=== PATIENT | female | born 1970 | race Caucasian/White ===

== ENCOUNTER 2018-09-09 20:29 | Observation (INO) ==
[2018-09-09 20:53] LABS: Microscopic, Urine URINE MICROSCOPIC (MICROSCOPIC)
[2018-09-09 21:05] LABS: Basophils # 0.1 K/mm3 (0-0.2); Basophils % 0.4 % (0.1-2.0); Eosinophils # 0.1 K/mm3 (0.0-0.4); Eosinophils % 0.5 % (0.1-12.0); Hematocrit 46.1 % (37.0-47.0); Hemoglobin 15.6 g/dL (12.2-16.2); Lymphocytes # 1.6 K/mm3 (0.7-4.5); Lymphocytes % 10.1 % (10-50); Mean Corpuscular HGB Conc 33.9 g/dL (31.8-35.4); Mean Corpuscular Hemoglobin 30.6 pg (27.0-31.2); Mean Corpuscular Volume 90.2 fl (81-99); Mean Platelet Volume 8.2 fl (7.4-10.4); Monocytes # 0.6 K/mm3 (0.1-1.0); Monocytes % 3.6 % (1.7-9.3); Neutrophils # 13.5 K/mm3 (1.8-7.8); Neutrophils % 85.5 % (37.0-80.0); Platelet Count 308 K/mm3 (142-424); Red Blood Count 5.11 M/mm3 (4.20-5.40); White Blood Count 15.7 K/mm3 (4.8-10.8)
[2018-09-09 21:10] LABS: Appearance,Urine CLEAR (Clear); Bilirubin,Urine Negative (Negative); Blood, Urine 2+ (Negative); Color,Urine YELLOW (Yellow); Glucose,Urine (UA) Negative (Negative); Ketones,Urine TRACE (Negative); Leukocyte Esterase,Urine Negative (Negative); Protein,Urine Negative (Negative); Specific Gravity, Urine 1.025 (1.005-1.030); Urobilinogen,Urine 0.2 EU/dl (0.2)
[2018-09-09 21:16] LABS: Albumin Level 4.1 gm/dL (3.4-5.0); Albumin/Globulin Ratio 1.2 (1.1-1.8); Anion Gap 16.8 mEq/L (5-15); Bilirubin,Total 0.5 mg/dL (0.2-1.0); Calcium 9.4 mg/dL (8.5-10.1); Globulin 3.3 gm/dl (1.3-3.2); Potassium 3.8 mmoL/L (3.5-5.1); Total Protein,Serum 7.4 gm/dL (6.4-8.2)
[2018-09-09 21:22] LABS: RBC,Urine Occasional #/hpf (0-3); WBC,Urine Occasional #/hpf (0-3)
[2018-09-09 21:23] LABS: Bacteria,Urine Trace /lpf
[2018-09-09 22:41] LABS: Eosinophils % 1 % (0-3); Lymphocytes % 9 % (10-50); Monocytes % 3 % (2-9); Neutrophils % 86 % (42-76); RBC Morphology Normal; Total Cells Counted 100
--- NOTE | 2018-09-09 23:27 | Emergency Department Note ---
ED Disposition Clinical Impression: Cholelithiasis, Appendicitis Disposition: Admitted as Observation Condition on Discharge: Good Referrals: Provider,Referral, [Primary Care Provider] - - Critical Care Critical Care Time: No Attestation: On 09/09/18, the high probability of a clinically significant, sudden or life threatening deterioration of the following system(s) required my full and direct attention, intervention and personal management. The time I documented below is in addition to time spent performing reported procedures but includes the following listed in this critical care notation. Medical Decision Making - Medical Records Medical records reviewed: Yes: I reviewed the patient's medical records. - Archie Inquiry Pt receiving controlled substance: No Archie was queried for this patient: No Vital Signs: 09/09/18 20:35 09/09/18 21:30 09/09/18 22:37 Temperature 98.4 F Temperature Source Oral Pulse Rate [Right Radial] 89 87 72 Respiratory Rate 16 20 18 Blood Pressure [Right Arm] 203/87 H 196/88 H 132/93 H Blood Pressure Mean [Right Arm] 125 124 106 Blood Pressure Source [Right Arm] Automatic Cuff Blood Pressure Position [Right Arm] Sitting 02 Sat by Pulse Oximetry 100 97 97 Oxygen Delivery Method Room Air Room Air Room Air - Lab Data Lab results reviewed: Yes: I reviewed the patient's lab results. Lab Results 09/09/18 20:40: WBC 15.7 H, RBC 5.11, Hgb 15.6, Hct 46.1, MCV 90.2, MCH 30.6, MCHC 33.9, RDW 13.0, Plt Count 308, MPV 8.2, Neut % (Auto) 85.5 H, Lymph % (Auto) 10.1, [place] % (Auto) 3.6, Eos % (Auto) 0.5, Baso % (Auto) 0.4, Neut # (Auto) 13.5 H, Lymph # (Auto) 1.6, [place] # (Auto) 0.6, Eos # (Auto) 0.1, Baso # (Auto) 0.1, Total Counted 100, Neutrophils % (Manual) 86 H, Band Neutrophils % 1.0, Lymphocytes % (Manual) 9 L, Monocytes % (Manual) 3, Eosinophils % (Manual) 1, Platelet Estimate Normal, RBC Morphology Normal 09/09/18 20:40: Urine HCG, Qual Negative 09/09/18 20:40: Sodium 140, Potassium 3.8, Chloride 101, Carbon Dioxide 26, Anion Gap 16.8 H, BUN 10, Creatinine 0.75, Estimated Creat Clear 125, Estimated GFR 83, Est GFR ( Amer) 100, Glucose 105, Calcium 9.4, Total Bilirubin 0.5, AST 17, ALT 16, Alkaline Phosphatase 89, Total Protein 7.4, Albumin 4.1, Globulin 3.3 H, Albumin/Globulin Ratio 1.2, Amylase 72, Lipase 126 09/09/18 20:41: Urine Color Yellow, Urine Appearance Clear, Urine pH 7.0, Ur Specific [place] 1.025, Urine Protein Negative, Urine Glucose (UA) Negative, Urine Ketones Trace, Urine Blood 2+, Urine Nitrate Negative, Urine Bilirubin Negative, Urine Urobilinogen 0.2, Ur Leukocyte Esterase Negative, Urine RBC Occasional, Urine WBC Occasional, Ur Squamous Epith Cells 3-5, Urine Bacteria Trace Result diagrams: 09/09/18 20:40 09/09/18 20:40 Orders (Tests/Meds): ED MEDICATIONS Generic Name Dose Route Start Last Admin Trade Name Kasia PRN Reason Stop Dose Admin Sodium Chloride 10 ml 09/09/18 20:41 Saline Flush 10ml Syringe IV 10/09/18 20:40 NEEDED PRN Maintain IV Site Discontinued Medications Generic Name Dose Route Start Last Admin Trade Name Frejignesh PRN Reason Stop Dose Admin Ioversol 75 ml 09/09/18 22:42 09/09/18 22:43 Rad-Optiray 350 100ml Vial IV 09/09/18 22:43 75 ml ONCE ONE Administration Protocol Ketorolac Tromethamine 30 mg 09/09/18 21:31 09/09/18 21:51 Toradol 30mg/Ml Vial IV 09/09/18 21:32 30 mg ONCE ONE Administration Ondansetron HCl 4 mg 09/09/18 21:32 09/09/18 21:51 Zofran 4mg/2ml Vial IV 09/09/18 21:33 4 mg ONCE ONE Administration Sodium Chloride 10 ml 09/09/18 22:42 09/09/18 22:43 Rad-Saline Flush 10ml Syringe IV 09/09/18 22:43 10 ml ONCE ONE Administration ORDERS Category Date Time Status CT abdomen pelvis w con Stat Cat Scan 09/09/18 21:32 Taken - CT Data CT Scan: Abdomen Time Received: 23:[address] Reviewed: Yes: I discussed the CT results w/the radiologist Preliminary Findings: Abnormal (Cholelithiasis and a appendicolith with a 15 mm appendix some free fluid) Medical Decision Narrative: Differential diagnosis acute pancreatitis, cholecystitis, perforated ulcer, appendicitis, hernia, Patient CT is consistent with cholelithiasis and possibly early appendicitis with appendicolith and a 15 mm appendix. Patient treated with Zofran and Toradol with improvement of symptoms. Discussed with Dr. Cox will admit patient for observation n.p.o. no antibiotics at this time. Admitted to Dr. Foy the doctor corrections sergeant General Adult HPI - General Chief complaint: Abdominal Pain Stated complaint: Abd pain Time Seen by Provider: 09/09/18 20:40 Mode of Arrival: Ambulatory Limitations: No Limitations Description of Symptoms (Recalled from ER Triage Doc. by RN): pt reports abdominal pain that started around 1300 after eating a hotdog, reports abdominal pain is in her upper abdomen radiating into her back, reports nausea, no vomiting - History of Present Illness HPI narrative: 48-year-old female history of gastric bypass states she ate a hot dog mid day and now has epigastric and right upper quadrant pain with nausea. No other surgery. Otherwise healthy she has lost 100 pounds since her bypass - Related Data Home Medications Medication Instructions Recorded Confirmed No Known Home Medications 09/09/18 09/09/18 Allergies Allergy/AdvReac Type Severity Reaction Status Date / Time PENICILLIN Allergy Unknown I-RASH Uncoded 09/09/18 20:42 [facility] History - Hepatitis A Screen Drug use history?: No High risk sexual behaviors?: No History of sexually transmitted infection?: No Currently employed?: No Childcare worker?: No Do you have indoor plumbing?: Yes Do you have electricity?: Yes Attestation statement:: This patient has been screened for Hepatitis A risk factors. I have reviewed the patient's past medical history: Yes Medical History: Denies:: Diabetes Mellitus Type 1, Diabetes Mellitus Type 2 Other Surgeries: Yes: Other (Gastric sleeve) - Social History Smoking Status: Current every day smoker Tobacco Type: cigarettes # Packs/Day (cigarettes): 1 Alcohol Intake: never Alcohol Intake Frequency:: a few times a week Substance Use Type: marijuana Occupational Status: employed - Psychiatric History Expresses thoughts of harming self/others: None Suicide Plan Description: No Plan ROS Obtained: Yes All systems reviewed & no additional complaints - Gastrointestinal Gastrointestingal: Reports: system reviewed and no additional complaints, except as docu, as per HPI, abdominal pain, nausea Physical Exam - General General appearance: alert, in distress (Right upper quadrant epigastric pain with nausea) - Head Head exam: atraumatic, normocephalic, normal inspection - Eye Eye exam: Present: normal appearance, PERRL, EOMI - ENT ENT exam: Present: normal exam, normal oropharynx, mucous membranes moist, TM's normal bilaterally, normal external ear exam - Neck Neck exam: Present: normal inspection, full ROM, trachea midline. Absent: meningismus, lymphadenopathy - Chest Chest inspection: Present: normal inspection, symmetric chest wall rise. Absent: tenderness - Respiratory Respiratory exam: Present: normal lung sounds bilaterally. Absent: respiratory distress - Cardiovascular Cardiovascular exam: Present: regular rate, normal rhythm. Absent: JVD - Abdominal Exam Abdominal exam: Present: soft, tenderness, normal bowel sounds. Absent: distention, guarding, rebound, rigidity Abdominal tenderness: Present: RUQ, epigastrium, mild - Extremities Exam Extremities exam: Present: normal inspection, full ROM, normal capillary refill. Absent: calf tenderness - Back Exam Back exam: Present: normal inspection. Absent: tenderness - Neurological Exam Neurological exam: Present: alert, oriented X3 - Psychiatric Psychiatric exam: Present: normal affect, normal mood - Skin Skin exam: Present: warm, dry, intact, normal color - Lymphatic Lymphatic Findings: no adenopathy
[2018-09-10 07:18] LABS: Basophils % 0.2 % (0.1-2.0); Eosinophils # 0.1 K/mm3 (0.0-0.4); Eosinophils % 0.6 % (0.1-12.0); Hematocrit 42.2 % (37.0-47.0); Hemoglobin 14.5 g/dL (12.2-16.2); Lymphocytes % 6.9 % (10-50); Mean Corpuscular HGB Conc 34.2 g/dL (31.8-35.4); Mean Corpuscular Hemoglobin 30.7 pg (27.0-31.2); Mean Corpuscular Volume 89.8 fl (81-99); Mean Platelet Volume 7.7 fl (7.4-10.4); Monocytes # 0.7 K/mm3 (0.1-1.0); Monocytes % 4.9 % (1.7-9.3); Neutrophils # 12.6 K/mm3 (1.8-7.8); Neutrophils % 87.4 % (37.0-80.0); Platelet Count 255 K/mm3 (142-424); Red Cell Distribution Width 12.9 % (11.5-17.5); White Blood Count 14.5 K/mm3 (4.8-10.8)
[2018-09-10 07:38] LABS: INR 1.03 (0.9-1.1); Prothrombin Time 10.6 seconds (9.4-11.8)
--- NOTE | 2018-09-10 08:21 | Consult Report ---
*Admission Date: 09/10/18 *Chief complaint: Abdominal pain *History of present illness: Patient is a pleasant 48-year-old white female who had undergone laparoscopic gastric sleeve 2 years ago. She had been in her normal state of health feeling well until yesterday afternoon at which time she experienced diffuse upper abdominal pain. She describes this as constant. It was from her epigastrium to her umbilical area. She presented to the emergency department in the late evening yesterday evening and workup revealed a leukocytosis. She underwent CT scan which revealed incidental gallstones with no sonographic evidence of cholecystitis. She did however have findings of thickened appendix possibly co nsistent with early appendicitis. She was admitted for inpatient management. She has had ongoing pain diffusely which is worse with lying on her side. She denies nausea or diarrhea. Review of Systems - Constitutional Reports anorexia - Eyes Denies loss of vision - ENT Denies abnormal hearing - *Cardiovascular Denies chest pain - *Respiratory Denies shortness of breath - *Gastrointestinal Reports abdominal pain - *Genitourinary Denies abnormal periods - *Neurologic Denies abnormal walking, Denies dizziness [facility] History Medical History: Denies:: Cancer, Diabetes Mellitus Type 1, Diabetes Mellitus Type 2, MRSA *Have you ever received a pneumonia vaccine?: No *Have you received a flu vaccine this season?: Yes Laterality Cases: Bilateral: Tonsillectomy Other Surgeries: Yes: Other (Gastric sleeve) Amputation: No Fractures: No - *Social History Educational Level: Completed College Smoking Status: Current every day smoker Tobacco Type: cigarettes # Packs/Day (cigarettes): 1 Alcohol Intake: current Alcohol Intake Frequency:: a few times a week Substance Use Type: marijuana *Occupational Status:: employed Housing: house *Travel in the last 8 weeks: None - Psychiatric History Expresses thoughts of harming self/others: None Suicide Plan Description: No Plan Family Hx:: Cancer, Diabetes, Heart Attack Meds Home Medications Medication Instructions Recorded Confirmed Type Calcium Carbonate [Calcium] 600 mg PO DAILY 09/10/18 09/10/18 History Simethicone 125 mg PO DAILY PRN 09/10/18 09/10/18 History Allergies Allergy/AdvReac Type Severity Reaction Status Date / Time PENICILLIN Allergy Unknown I-RASH Uncoded 09/09/18 20:42 Exam Vital signs and Labs for Last 24 Hours: Temp Pulse Resp BP Pulse Ox 99.2 F 88 16 134/79 97 09/10/18 07:59 09/10/18 07:59 09/10/18 07:59 09/10/18 07:59 09/10/18 07:59 Laboratory Results - last 24 hr 09/09/18 20:40: WBC 15.7 H, RBC 5.11, Hgb 15.6, Hct 46.1, MCV 90.2, MCH 30.6, MCHC 33.9, RDW 13.0, Plt Count 308, MPV 8.2, Neut % (Auto) 85.5 H, Lymph % (Auto) 10.1, [place] % (Auto) 3.6, Eos % (Auto) 0.5, Baso % (Auto) 0.4, Neut # (Auto) 13.5 H, Lymph # (Auto) 1.6, [place] # (Auto) 0.6, Eos # (Auto) 0.1, Baso # (Auto) 0.1, Total Counted 100, Neutrophils % (Manual) 86 H, Band Neutrophils % 1.0, Lymphocytes % (Manual) 9 L, Monocytes % (Manual) 3, Eosinophils % (Manual) 1, Platelet Estimate Normal, RBC Morphology Normal 09/09/18 20:40: Urine HCG, Qual Negative 09/09/18 20:40: Sodium 140, Potassium 3.8, Chloride 101, Carbon Dioxide 26, A nion Gap 16.8 H, BUN 10, Creatinine 0.75, Estimated Creat Clear 125, Estimated GFR 83, Est GFR ( Amer) 100, Glucose 105, Calcium 9.4, Total Bilirubin 0.5, AST 17, ALT 16, Alkaline Phosphatase 89, Total Protein 7.4, Albumin 4.1, Globulin 3.3 H, Albumin/Globulin Ratio 1.2, Amylase 72, Lipase 126 09/09/18 20:41: Urine Color Yellow, Urine Appearance Clear, Urine pH 7.0, Ur Specific [place] 1.025, Urine Protein Negative, Urine Glucose (UA) Negative, Urine Ketones Trace, Urine Blood 2+, Urine Nitrate Negative, Urine Bilirubin Negative, Urine Urobilinogen 0.2, Ur Leukocyte Esterase Negative, Urine RBC Occasional, Urine WBC Occasional, Ur Squamous Epith Cells 3-5, Urine Bacteria Trace 09/10/18 07:01: WBC 14.5 H, RBC 4.70, Hgb 14.5, Hct 42.2, MCV 89.8, MCH 30.7, MCHC 34.2, RDW 12.9, Plt Count 255, MPV 7.7, Neut % (Auto) 87.4 H, Lymph % (Auto) 6.9 L, [place] % (Auto) 4.9, Eos % (Auto) 0.6, Baso % (Auto) 0.2, Neut # (Auto) 12.6 H, Lymph # (Auto) 1.0, [place] # (Auto) 0.7, Eos # (Auto) 0.1, Baso # (Auto) 0.0 09/10/18 07:01: PT 10.6, INR 1.03 I & O for Last 24 hours: Intake & Output 09/07/18 09/08/18 09/09/18 09/10/18 11:59 11:59 11:59 11:59 Intake Total 0 / 0 Balance 0 / 0 Weight 190 lb 2 oz - *Routine HEENT Exam Head: Present: normocephalic Eye: Present: EOMI, PERRL ENT: Present: mucous membranes moist - *Routine Neck Exam Present: supple. Absent: lymphadenopathy - *Routine Respiratory Exam Present: CTA bilaterally - *Routine Cardiovascular Exam Present: RRR - *Routine Abdominal Exam Present: soft, tenderness Comments: She has multiple laparoscopy scars. Her abdomen is soft. She has diffuse tenderness across the epigastrium and in the right lower quadrant. - *Routine Extremities Exam Absent: cyanosis, clubbing, edema - *Routine Skin Exam Present: warm. Absent: rash - *Routine Neurological Exam Present: alert, oriented X3 - Detailed Eye Exam Eyelids: Left normal inspection Results - Labs 09/10/18 07:01 09/09/18 20:40 Laboratory Results - last 24 hr 09/09/18 20:40: WBC 15.7 H, RBC 5.11, Hgb 15.6, Hct 46.1, MCV 90.2, MCH 30.6, MCHC 33.9, RDW 13.0, Plt Count 308, MPV 8.2, Neut % (Auto) 85.5 H, Lymph % (Auto) 10.1, [place] % (Auto) 3.6, Eos % (Auto) 0.5, Baso % (Auto) 0.4, Neut # (Auto) 13.5 H, Lymph # (Auto) 1.6, [place] # (Auto) 0.6, Eos # (Auto) 0.1, Baso # (Auto) 0.1, Total Counted 100, Neutrophils % (Manual) 86 H, Band Neutrophils % 1 .0, Lymphocytes % (Manual) 9 L, Monocytes % (Manual) 3, Eosinophils % (Manual) 1, Platelet Estimate Normal, RBC Morphology Normal 09/09/18 20:40: Urine HCG, Qual Negative 09/09/18 20:40: Sodium 140, Potassium 3.8, Chloride 101, Carbon Dioxide 26, Anion Gap 16.8 H, BUN 10, Creatinine 0.75, Estimated Creat Clear 125, Estimated GFR 83, Est GFR ( Amer) 100, Glucose 105, Calcium 9.4, Total Bilirubin 0.5, AST 17, ALT 16, Alkaline Phosphatase 89, Total Protein 7.4, Albumin 4.1, Globulin 3.3 H, Albumin/Globulin Ratio 1.2, Amylase 72, Lipase 126 09/09/18 20:41: Urine Color Yellow, Urine Appearance Clear, Urine pH 7.0, Ur Specific [place] 1.025, Urine Protein Negative, Urine Glucose (UA) Negative, Urine Ketones Trace, Urine Blood 2+, Urine Nitrate Negative, Urine Bilirubin Negative, Urine Urobilinogen 0.2, Ur Leukocyte Esterase Negative, Urine RBC Occasional, Urine WBC Occasional, Ur Squamous Epith Cells 3-5, Urine Bacteria Trace 09/10/18 07:01: WBC 14.5 H, RBC 4.70, Hgb 14.5, Hct 42.2, MCV 89.8, MCH 30.7, MCHC 34.2, RDW 12.9, Plt Count 255, MPV 7.7, Neut % (Auto) 87.4 H, Lymph % (Auto) 6.9 L, [place] % (Auto) 4.9, Eos % (Auto) 0.6, Baso % (Auto) 0.2, Neut # (Auto) 12.6 H, Lymph # (Auto) 1.0, [place] # (Auto) 0.7, Eos # (Auto) 0.1, Baso # (Auto) 0.0 09/10/18 07:01: PT 10.6, INR 1.03 Assessment and Plan - Assessment and plan all Dx Assessment and Plan for all problems:: Patient's final reading on the CT scan is consistent with acute appendicitis with multiple appendicoliths and inflamed distended appendix. I discussed this with her. At this time plan will be for laparoscopic with possibly open appendectomy. I did explain to her that the finding of gallstones CT scan is likely an incidental finding. However, attempt will be made to laparoscopically evaluate the gallbladder as well. Patient understands and agrees to proceed.
[2018-09-10 08:23] LABS: Lymphocytes % 3 % (10-50); Monocytes % 3 % (2-9); Neutrophils % 92 % (42-76); RBC Morphology Normal; Total Cells Counted 100
--- NOTE | 2018-09-10 08:51 | Progress Note ---
[facility] Anesthesia Checklist - Patient Identification Patient Identification: Arm Band, Verbal (Name & ) - Structural Data Admitted From: Inpatient Planned Operative Procedure/s: lap appy Consent for Planned Operative Procedure(s) Verified: Yes Verified Documents: History and Physical - NPO Status Verified Time NPO: 00:00 - Additional verifications Patient : No Anesthesia Reactions: No Hx Blood Transfusions: No Blood Transfusion Reaction: No Cephalosporin Allergy: No Previous Colonoscopy: No - Cardiovascular Assessment Heart Sounds: S1 & S2 Pulse Strength: Baseline Pulse Rhythm: Regular Peripheral Edema: No - Airway Assessment C-Spine Mobility Assessed: Yes TMJ Mobility Assessed: Yes Dentition: Good Dentition - Neurological Assessment Level of Consciousness: Awake, Alert, Appropriate Hx Seizures: No Numbness or tingling in extremities: No - Anesthesia Plan Anesthesia Risk discussed: Yes Anesthesia Plan: Verified ASA Class: II Anesthesia Type: General [facility] History I have reviewed the patient's past medical history: Yes Medical History: Denies:: Cancer, Diabetes Mellitus Type 1, Diabetes Mellitus Type 2, MRSA *Have you ever received a pneumonia vaccine?: No *Have you received a flu vaccine this season?: Yes Laterality Cases: Bilateral: Tonsillectomy Other Surgeries: Yes: Other (Gastric sleeve) Amputation: No Fractures: No - *Social History Educational Level: Completed College Smoking Status: Current every day smoker Tobacco Type: cigarettes # Packs/Day (cigarettes): 1 Alcohol Intake: current Alcohol Intake Frequency:: a few times a week Substance Use Type: marijuana *Occupational Status:: employed Housing: house *Travel in the last 8 weeks: None - Psychiatric History Expresses thoughts of harming self/others: None Suicide Plan Description: No Plan Family Hx:: Cancer, Diabetes, Heart Attack
--- NOTE | 2018-09-10 10:41 | Operative Note ---
Date of procedure: 09/10/18 Pre-op Diagnosis:: Acute appendicitis Post-op Diagnosis:: Same Procedure performed:: Laparoscopic appendectomy Surgeon:: George Cox MD [employer] SPECIALIST:: Shamar Carbajal Anesthesia: CHRIS Estimated blood loss (mL): 25 Clinical Note:: Patient is a 48-year-old white female who had previously undergone laparoscopic sleeve gastrectomy 2 years ago in [place]. She was in her usual state of health until yesterday afternoon at which time she had developed onset of upper abdominal pain. This persisted throughout the day and she presented to the emergency department in the evening of 09/09/18. Mild leukocytosis. She underwent CT scan which revealed gallstone and thickened appendix with appendicolith. It was felt that she may have early appendicitis. She was admitted for inpatient management. Final reading on her CT scan revealed multiple appendicoliths and 17 mm appendix consistent with acute appendicitis with some fluid in the pelvis. Arrangements were made for appendectomy. Operative findings:: Patient had a significantly inflamed thickened tense somewhat suppurative appendicitis with nontransmural necrosis. She also had some loculated fluid in the right pelvis with thin-walled "capsule". Gallbladder appeared relatively unremarkable. She did have an appreciably enlarged uterus and note CT scan revealed probable fibroid. Operative note:: Consent was obtained and patient was taken to the operating room. She was given preoperative intravenous antibiotics. In the operating room she was placed in a supine position. General anesthesia was induced via endotracheal tube. Nolen catheter was placed for bladder decompression. Abdomen was prepped and draped in the standard surgical fashion. Subumbilical skin incision was made and while performing abdominal wall lift Veress needle was inserted. CO2 pneumoperitoneum was achieved to 15 mmHg. A 12 mm optical trocar was inserted at the umbilicus. Intraperitoneal contents were visualized. She had a 5 mm trocar inserted in the suprapubic location and a 5 mm trocar inserted in the right upper abdominal location. There was loculated fluid with thin walled sac which was rather mucousy appearing in the right pelvic area distal to the cecum. This was grasped with a grasper and was able to be easily extracted via the umbilical trocar site. The reactive appearing fluid was suctioned free. Appendix was easily identified and found to be significantly acutely inflamed and somewhat suppurative. It was grasped with an endoscopic [place]. There was a micro- pinhole perforation which was apparent at the time of grasping the appendix which exuded some thin fluid which was suctioned free. The appendix was mobilized. Mesoappendix was divided with JAGUAR ultrasonic harmonic unruly with care taken to coagulate the appendiceal artery. Dissection was carried down to the appendiceal base. The appendix was divided at its base with an endoscopic MOISÉS linear cutting stapling device. The appendix was placed within an Endo Catch retrieval device and removed from the peritoneal cavity via the umbilical trocar site which required some extension of the fascial incision for delivery of the appendix. Pneumoperitoneum was reestablished. Pelvis and pericecal location were irrigated and aspirated until clear. She was noted to have rather enlarged uterus and CT scan was suggestive of large fibroid. Inspection was carried out of the right upper quadrant. She had normal appearance of the body of the gallbladder. There was good hemostasis. Trochars were removed and CO2 pneumoperitoneum was evacuated. Fascia at the umbilicus was closed with several interrupted 0 Vicryl sutures. Local anesthetic was infiltrated. Skin incisions were closed with 4-0 Monocryl in subcuticular fashion. Steri-Strips and dressings were applied. Condition: stable Disposition: PACU Specimens:: Appendix Complications:: None immediately apparent
--- NOTE | 2018-09-10 10:46 | Progress Note ---
[facility] Anesthesia Record Part II Discharge Time: 11:10 Destination: Medical Surgical Department PACU nurse assessment reviewed?: Yes Patient Condition:: Good Anesthesia Complications:: None Swallowing reflex intact?: Yes Cyanosis?: No
--- NOTE | 2018-09-10 10:46 | Progress Note ---
[facility] Anesthesia Record Part I Intake, IV Amount: 1,000 Estimated blood loss (mL): 10 Urine output (mL): 50 Blood Products used (#): none Blood Pressure: 136/76 SaO2: 99 Pulse Rate: 68 Respiratory Rate: 20 Temperature: 97.6 F Patient is:: Awake, Stable Stable to PACU at:: 10:40
[2018-09-11 06:58] LABS: Basophils % 0.2 % (0.1-2.0); Eosinophils % 0.3 % (0.1-12.0); Hematocrit 36.9 % (37.0-47.0); Lymphocytes # 1.7 K/mm3 (0.7-4.5); Lymphocytes % 15.6 % (10-50); Mean Corpuscular HGB Conc 33.2 g/dL (31.8-35.4); Mean Corpuscular Hemoglobin 30.5 pg (27.0-31.2); Mean Corpuscular Volume 91.8 fl (81-99); Monocytes # 0.6 K/mm3 (0.1-1.0); Neutrophils # 8.8 K/mm3 (1.8-7.8); Neutrophils % 78.9 % (37.0-80.0); Platelet Count 197 K/mm3 (142-424); Red Blood Count 4.02 M/mm3 (4.20-5.40); Red Cell Distribution Width 12.9 % (11.5-17.5); White Blood Count 11.1 K/mm3 (4.8-10.8)
--- NOTE | 2018-09-11 07:26 | Progress Note ---
Subjective Patient reports: feels better Exam Vital signs and Labs for Last 24 Hours: Temp Pulse Resp BP Pulse Ox 98.3 F 72 16 99/59 L 98 09/11/18 04:00 09/11/18 04:00 09/11/18 04:00 09/11/18 04:00 09/11/18 04:00 Laboratory Results - last 24 hr 09/10/18 07:01: Total Counted 100, Neutrophils % (Manual) 92 H, Lymphocytes % (Manual) 3 L, Atypical Lymphs % 2.0, Monocytes % (Manual) 3, Platelet Estimate Normal, RBC Morphology Normal 09/10/18 07:01: PT 10.6, INR 1.03 09/10/18 09:20: Urine Color Yellow, Urine Appearance Sl cloudy, Urine pH 8.0, Ur Specific [place] 1.010, Urine Protein Trace, Urine Glucose (UA) Negative, Urine Ketones Negative, Urine Blood Negative, Urine Nitrate Negative, Urine Bilirubin Negative, Urine Urobilinogen 0.2, Ur Leukocyte Esterase Negative, Urine WBC 5- 10, Ur Squamous Epith Cells 3-5 09/11/18 05:32: WBC 11.1 H, RBC 4.02 L, Hct 36.9 L, MCV 91.8, MCH 30.5, MCHC 33.2, RDW 12.9, Plt Count 197, MPV 8.0, Neut % (Auto) 78.9, Lymph % (Auto) 15.6, [place] % (Auto) 5.0, Eos % (Auto) 0.3, Baso % (Auto) 0.2, Neut # (Auto) 8.8 H, [place] mph # (Auto) 1.7, [place] # (Auto) 0.6, Eos # (Auto) 0.0, Baso # (Auto) 0.0 I & O for Last 24 hours: Intake & Output 09/08/18 09/09/18 09/10/18 09/11/18 11:59 11:59 11:59 11:59 Intake Total 999 / 999 2129 / 2129 Balance 999 / 999 2129 / 2129 Weight 190 lb 2 oz 190 lb 1 oz - *Routine Abdominal Exam Present: soft Progress Note: A&P Assessment and Plan for All Diagnoses:: DC Home
--- NOTE | 2018-09-11 07:30 | Discharge Summary ---
General - General Admission date:: 09/10/18 Discharge date: 09/11/18 HPI HPI: Patient is a 48-year-old healthy white female who had presented to the emergency department in the evening of 09/09/18 after she had developed onset of upper abdominal pain earlier that day. Pain remained in the upper abdomen. She was evaluated in the emergency department and had a CT scan performed which revealed gallstone but findings of distended appendix. Due to the equivocal presentation she was admitted overnight. Hospital Course Hospital Course: She was admitted to the medical surgical floor in the measurement specialist hours of 09/10/18. In the morning she continued to have diffuse upper abdominal pain with minor tenderness in the right lower quadrant. However, final CT scan reading was more consistent with acute appendicitis with 17 mm appendix with multiple appendicoliths and some enhancement. She was taken to the operating room at which time she underwent laparoscopic appendectomy in the morning of 09/11/18. She was found to have a significantly acutely inflamed somewhat suppurative appendicitis with some nontransmural necrosis without clear free perforation. There was a significant amount of fluid in the right pelvis as well which was somewhat loculated. Please see operative dictation for complete details. Postoperatively she was admitted to the medical surgical floor. She was continued on perioperative levofloxacin and metronidazole. Several hours of surgery the patient felt much better. Her diet was advanced from full liquid to bland diet which she tolerated without difficulty. She did develop some abdominal soreness but overall felt better. Following morning her white blood cell count has shown improvement to 11,000. She felt much better. Plan was made for discharge home at this time on several additional days of oral antibiotics of levofloxacin and metronidazole. Objective Vital signs: Temp Pulse Resp BP Pulse Ox 98.3 F 72 16 99/59 L 98 09/11/18 04:00 09/11/18 04:00 09/11/18 04:00 09/11/18 04:00 09/11/18 04:00 Results Labs on day of discharge: Labs from last 24 hours 09/11/18 09/10/18 09/10/18 05:32 09:20 07:01 WBC 11.1 H RBC 4.02 L Hct 36.9 L MCV 91.8 MCH 30.5 MCHC 33.2 RDW 12.9 Plt Count 197 MPV 8.0 Neut % (Auto) 78.9 Lymph % (Auto) 15.6 [place] % (Auto) 5.0 Eos % (Auto) 0.3 Baso % (Auto) 0.2 Neut # (Auto) 8.8 H Lymph # (Auto) 1.7 [place] # (Auto) 0.6 Eos # (Auto) 0.0 Baso # (Auto) 0.0 Total Counted Neutrophils % (Manual) Lymphocytes % (Manual) Atypical Lymphs % Monocytes % (Manual) Platelet Estimate RBC Morphology PT 10.6 INR 1.03 Urine Color Yellow Urine Appearance Sl cloudy Urine pH 8.0 Ur Specific [place] 1.010 Urine Protein Trace Urine Glucose (UA) Negative Urine Ketones Negative Urine Blood Negative Urine Nitrate Negative Urine Bilirubin Negative Urine Urobilinogen 0.2 Ur Leukocyte Esterase Negative Urine WBC 5-10 Ur Squamous Epith Cells 3-5 09/10/18 07:01 WBC RBC Hct MCV MCH MCHC RDW Plt Count MPV Neut % (Auto) Lymph % (Auto) [place] % (Auto) Eos % (Auto) Baso % (Auto) Neut # (Auto) Lymph # (Auto) [place] # (Auto) Eos # (Auto) Baso # (Auto) Total Counted 100 Neutrophils % (Manual) 92 H Lymphocytes % (Manual) 3 L Atypical Lymphs % 2.0 Monocytes % (Manual) 3 Platelet Estimate Normal RBC Morphology Normal PT INR Urine Color Urine Appearance Urine pH Ur Specific [place] Urine Protein Urine Glucose (UA) Urine Ketones Urine Blood Urine Nitrate Urine Bilirubin Urine Urobilinogen Ur Leukocyte Esterase Urine WBC Ur Squamous Epith Cells Discharge Plan - Patient Discharge Instructions ACTIVITY: No heavy lifting DIET: advance to your usual diet Patient Instructions: DI for Appendicitis -- Adult, Gallstones, Appendicitis, DI for Gallstones, Surgical Site Infection, Appendectomy -- Laparoscopic Surgery, DI for Cholecystitis - Follow up Plan Follow up with: George Cox MD [Staff Physician] - 2 weeks Disposition: Home, Self-Custodial Medications: Home Medications Medication Instructions Recorded Confirmed Type Calcium Carbonate [Calcium] 600 mg PO DAILY 09/10/18 09/10/18 History Simethicone 125 mg PO DAILY PRN 09/10/18 09/10/18 History Hydrocod/Acet 5/325 mg [[place] 1 - 2 tab PO Q6HP PRN #21 tab 09/11/18 Rx 5/325mg tablet] levoFLOXacin [Levaquin 500mg 500 mg PO DAILY #5 tab 09/11/18 Rx tab] metroNIDAZOLE [Flagyl 500mg 500 mg PO TID #15 tab 09/11/18 Rx Tablet] Prescriptions/Medication Reconciliation: New Hydrocod/Acet 5/325 mg [[place] 5/325mg tablet] 1 - 2 tab PO Q6HP PRN #21 tab PRN Reason: Moderate Pain levoFLOXacin [Levaquin 500mg tab] 500 mg PO DAILY #5 tab metroNIDAZOLE [Flagyl 500mg Tablet] 500 mg PO TID #15 tab Continue Calcium Carbonate [Calcium] 600 mg PO DAILY Simethicone 125 mg PO DAILY PRN PRN Reason: Gas Pain And Discomfort
[2018-09-11 07:41] LABS: Hemoglobin 12.4 g/dL (12.2-16.2)
[2018-09-11 08:00] LABS: Calcium 8.3 mg/dL (8.5-10.1)
--- NOTE | 2018-09-11 08:12 | Pharmacy Consult Notes ---
[facility] Pharmacy VTE Monitoring - Patient Demographics Admission date: 09/10/18 Report Date: 09/10/18 Time: 11:30 Allergies/Adverse Reactions: Patient Allergies Penicillins Allergy (Unknown, Verified 09/10/18 11:22) Unknown allergy reaction Height: 1.6 m Weight: 86.211 kg Patient Problems: Current Active Problems Cholelithiasis (Acute) Appendicitis (Acute) - VTE Risk Labs: VTE Related Lab Results Hgb 12.4 g/dL (12.2-16.2) D 09/11/18 05:32 Hct 36.9 % (37.0-47.0) L 09/11/18 05:32 Plt Count 197 K/mm3 (142-424) 09/11/18 05:32 PT 10.6 seconds (9.4-11.8) 09/10/18 07:01 INR 1.03 (0.9-1.1) 09/10/18 07:01 BUN 12 mg/dL (7-18) 09/11/18 05:32 Creatinine 0.80 mg/dL (0.55-1.02) 09/11/18 05:32 Estimated Creat Clear 118 mL/min (50-200) 09/11/18 05:32 VTE Score: 3 VTE Risk Level: Low Risk - Prophylaxis Types of VTE Prophylaxis: TEDS Knee High (CHRIS HOSE ORDER PLACED)
== END 2018-09-11 08:49 | disposition home or self-care (01) ==
LOC: 2ND 20:29 → ER 20:29 → 2ND 09-10 00:10
PROVIDERS: ADMIT Surgery; ATTEND Surgery
DX: K35.890 Other acute appendicitis without perforation or gangrene
CPT/HCPCS: 36415; 74177; 80048; 80053; 81001; 81025; 82150; 83690; 85007; 85025; 85610; 96374; 96375; 99284; G0378; J1956; J2405; J2710; Q9967

== ENCOUNTER → 2020-06-06 07:06 | Outpatient (CLI) | payer OTHER, SELFPAY ==
[2020-06-06 07:47] LABS: Basophils # 0.1 K/mm3 (0-0.2); Basophils % 0.8 % (0.1-2.0); Eosinophils # 0.1 K/mm3 (0.0-0.4); Eosinophils % 1.4 % (0.1-12.0); Hematocrit 42.9 % (37.0-47.0); Hemoglobin 13.6 g/dL (12.2-16.2); Lymphocytes # 2.9 K/mm3 (0.7-4.5); Lymphocytes % 44.8 % (10-50); Mean Corpuscular HGB Conc 31.7 g/dL (31.8-35.4); Mean Corpuscular Hemoglobin 27.8 pg (27.0-31.2); Mean Corpuscular Volume 87.6 fl (81-99); Mean Platelet Volume 7.8 fl (7.4-10.4); Monocytes # 0.5 K/mm3 (0.1-1.0); Monocytes % 7.5 % (1.7-9.3); Neutrophils # 2.9 K/mm3 (1.8-7.8); Neutrophils % 45.5 % (37.0-80.0); Platelet Count 267 K/mm3 (142-424); Red Blood Count 4.89 M/mm3 (4.20-5.40); Red Cell Distribution Width 13.9 % (11.5-17.5); White Blood Count 6.4 K/mm3 (4.8-10.8)
[2020-06-06 08:52] LABS: Alanine Aminotransferase 12 U/L (12-78); Albumin Level 4.2 g/dl (3.5-5.0); Albumin/Globulin Ratio 1.6 (1.1-1.8); Alkaline Phosphatase 76 U/L (38-126); Anion Gap 9.6 mEq/L (5-15); Aspartate Amino Transferase 24 U/L (14-36); Bilirubin,Total 0.5 mg/dl (0.2-1.3); Blood Urea Nitrogen 12 mg/dl (7-17); Calcium 9.5 mg/dl (8.4-10.2); Carbon Dioxide 32 mmol/L (22.0-30.0); Chloride 103 mmol/L (98-107); Chol/HDL Ratio 4.7 (1-3.5); Cholesterol 202 mg/dl (140-200); Estimated Glomerular Filt Rate 77 ml/min (>60); GFR (African American) 93 ML/MIN (>60); Globulin 2.7 g/dL (1.3-3.2); Glucose 85 mg/dl (74-100); HDL Cholesterol 43 mg/dl (40-60); Potassium 4.6 mmoL/L (3.5-5.1); Sodium 140 mmol/L (136-145); Total Protein,Serum 6.9 g/dl (6.3-8.2); Triglycerides 108 mg/dl (30-150); VLDL Cholesterol 22 mg/dL (0-40)
[2020-06-06 09:03] LABS: Direct LDL Cholesterol 135.85 mg/dL (100-129)
[2020-06-06 09:23] LABS: Thyroid Stimulating Hormone 1.36 uIU/mL (0.465-4.68)
[2020-06-06 09:41] LABS: Vitamin B12 660 pg/mL (239-931)
[2020-06-15 08:11] LABS: 1,25 Dihydroxy Vitamin D 19 pg/mL (.); 1,25-Dihydroxy, Vitamin D-2 <10 pg/mL (.); 1,25-Dihydroxy, Vitamin D-3 19 pg/mL (.)
== END ==
PROVIDERS: Visit Provider Nurse Practitioner Psychiatric/Mental Health
DX: Z00.00 Encounter for general adult medical examination without abnormal findings (principal); F98.8 Other specified behavioral and emotional disorders with onset usually occurring in childhood and adolescence; F41.1 Generalized anxiety disorder; E55.9 Vitamin D deficiency, unspecified
CPT/HCPCS: 36415; 80053; 80061; 82607; 82652; 84443; 85025

== ENCOUNTER → 2022-06-09 06:11 | Outpatient (CLI) | payer OTHER, SELFPAY ==
--- NOTE | 2022-06-09 06:12 | CA_ITS ---
APPROVED REPORT EXAM: Comprehensive 2D, Doppler, and color-flow Echocardiogram Back Padder: Carol Wen RVT Ht: 5 ft 3 in Wt: 208lbs BSA: 1.97 BP: 158/83 mmHg Indications: SOA,HTN,CP,PALPS 2D Dimensions LVOT 1.98 cm (M/F) 1.5-2.5 LA Volume 17.50 mL LA Volume Index 8.88 mL/m2 (M/F) 16-34 M-Mode Dimensions RVDd 2.36 cm (0.9-2.6) LA Diam 3.80 cm (1.9-4.0) LVDd 4.75 cm (3.5-5.7) Ao Diam 3.05 cm (2.0-3.7) LVDs 3.10 cm (3.5-5.7) IVSd 0.70 cm (0.6-1.1) PWd 1.34 cm (0.6-1.1) EF (Teich) 63.90% FS 34.70% EDV (Teich) 104.90 mL TAPSE 2.66 (<1.7) ESV (Teich) 37.90 mL LV Diastology E Decel Time 237.00 (160-240 msec) E/A Ratio 1.1 MED E' 7.10 (< 7 cm/sec) E'/MED E' Ratio 10.94 (>14) LAT E' 10.00 (<10 cm/sec) E/LAT E' Ratio 7.77 (>14) Aortic Valve AO Peak GR. 8.20 mmHg Mitral Valve MV E Max Edenilson. 78.00 (40-130 cm/s) MV A Velocity 70.00 (40-130 cm/s) E/A Ratio 1.11 MV Decel. Time 237.00 (160-240 ms) MV PHT 69.00 ms Pulmonary Valve PV Peak Velocity 90.00 (50-150 cm/s) Tricuspid Valve TR P. Velocity 137.00 cm/s RAP Estimate 10.00 mmHg RVSP 17.50 mmHg Left Ventricle Left atrium is mildly enlarged, left ventricle normal size, estimated ejection fraction 55% with no regional wall motion abnormality, there is no concentric left ventricular hypertrophy, diastolic parameters are inconclusive. Right Ventricle Right atrium and right ventricle are normal size and contractility. Aortic Valve Aortic valve is grossly normal there is no aortic stenosis or aortic insufficiency. Mitral Valve Mitral valve grossly normal, there is trace mitral regurgitation. Tricuspid Valve Tricuspid valve grossly normal, there is trace tricuspid regurgitation. Pulmonic Valve Pulmonic valve is poorly visualized. Great Vessels Aortic root is normal size. Inferior vena cava is normal size with normal inspiratory collapse. Pericardium No significant pericardial effusion. Conclusion 1. Normal left ventricular size preserved left ventricular systolic function, estimated ejection fraction 55% with no regional wall motion abnormality, diastolic parameters are inconclusive. 2. Trace mitral and tricuspid regurgitation. 3. No significant pericardial effusion. 4. Inferior vena cava normal size with normal inspiratory collapse. Electronically signed by : James Roldan MD 06/10/2022 06:37:53
--- NOTE | 2022-06-09 06:12 | CA_ITS ---
APPROVED REPORT Exam: Pharmacologic Technologist: Jennifer Fischer, Ht: 5 ft 3 in Wt: 208 lbs BSA: 1.97 m2 HR: 70 bpm BP: 156/86 mmHg Medical History Medications: Buspirone,,,,, Trazodone,,,,, ADderALL,,,,, Vraylar,,,,, Propranolol ER,,,,, Effexor XR,,,,, Stress Test Details Test: LEXISCAN Reason for pharmacologic stress test: changed from exercise stress test due to inability to reach target heart rate. HR Resting HR: 70 bpm Max Heart Rate (APMHR): 170.956864 bpm Max HR Achieved: 91 bpm Target HR (85% APMHR): 144.819530 bpm % of APMHR: 53.53 Recovery HR: 79 bpm BP Resting BP: 156/86 mmHg Max BP: 156/86 mmHg Recovery BP: 125.0/74.0 mmHg ECG Resting ECG: NSR, interpolated premature junctional complexes Clinical Exercise duration: 04:00 min Highest Stage Achieved: Exercise capacity: 1.0 METs Stress ECG Conclusion Switched from exercise due to limited exercise tolerance (went <1 minute into stage II Phani Protocol. Symptoms: Brief SOA, head discomfort. No CP. Arrhythmias/Ectopy: None ST-T Changes: No significant changes compared to baseline EKG. Conclusion: Unremarkable Lexiscan stress. Myoview images reported separately. Test Summary REST . . . . . . . Resting REST 02:04 . . 70 . 156/ 86 . . Stage 1 01:00 . . 88 . . . . Stage 2 01:00 . . 89 . . . . Stage 3 01:00 . . 85 . 108/ 58 . . Stage 4 01:00 . . 83 . 113/ 68 . Stop exercise at 04:00 RECOVERY 01:00 . . 80 . 133/ 76 . . RECOVERY 02:00 . . 81 . 133/ 76 . . RECOVERY 03:00 . . 77 . 126/ 75 . . RECOVERY 04:00 . . 76 . 125/ 74 . . RECOVERY 04:19 . . 77 . 125/ 74 . . Electronically signed by : James Roldan MD 06/10/2022 05:55:56
--- NOTE | 2022-06-09 06:12 | NM_ITS ---
APPROVED REPORT Exam: Nuclear Stress Test Indication: Chest pain, SOB, Palpitations, HTN, Tobacco use, Family history Patient Location: Outpatient Stress Tech: Jennifer Shane IN Tech:Trista Trevino, ARRT, RT (R)(N) Ht: 5 ft 3 in Wt: 208 lbs Bra Size: 36DD HR: 70 bpm BP: 156/86 mmHg BSA: 1.97 m2 TID: 1.00 BMI: 36.8 History: Chest pain, SOB, Palpitations, HTN, Tobacco use, Family history Procedure: Patient received a 0.4 mg of intravenous Lexiscan, resting heart rate 70 bpm, resting blood pressure 156/86 mmHg, with Lexiscan maximum heart rate achived was 91 bpm which is Less than 85 % of the maximum predicted heart rate and blood pressure was 156/86 mmHg. With Lexiscan, patient denied any complaint of chest pain. Electrocardiogram Resting electrocardiogram shows sinus rhythm, with Lexiscan there is less than 1.[address] segment depression noted from the baseline EKG. The EKG portion of the Lexiscan is nondiagnostic. Cardiac Stress and Resting SPECT Images: Cardiac Stress and Resting SPECT images were obtained using technetium 99m Myoview 31.6 mCi stress and 10.49 mCi at rest. Gated SPECT for analysis of segmental wall motion and calculation of the ejection fraction also done. Prone images were also obtained. Cardiac stress and muscle SPECT images show uniform myocardial activity without segmental perfusion abnormality, computer derived ejection fraction is over 65% with no regional wall motion abnormality, right ventricle is normal size and contractility. Conclusion: 1. The EKG portion of the Lexiscan is nondiagnostic. 2. No scintigraphic evidence of reversible ischemia seen, computer derived ejection fraction is over 65% with no regional wall motion abnormality, right ventricle is normal size and contractility. 3. Normal Lexiscan Myoview study. Electronically signed by : James Roldan MD 06/10/2022 05:58:40
--- NOTE | 2022-06-09 08:19 | HMH.ITSHM ---
Current Home Medications as stated by this patient Irina Blanchard or field representative/health education. []VENLAFAXINE TRAZODONE PROPRANOLOL LOSARTAN CARIPRAZINE BUSPIRONE
== END ==
PROVIDERS: PCP Nurse Practitioner Family; Visit Provider Physician Assistant
DX: R06.09 Other forms of dyspnea (principal); R07.89 Other chest pain; R00.2 Palpitations; I10 Essential (primary) hypertension; F41.1 Generalized anxiety disorder
CPT/HCPCS: 78452; 93017; 93306; A9502; J2785

== ENCOUNTER → 2022-06-15 14:11 | Outpatient (CLI) | payer OTHER, SELFPAY ==
[2022-06-15 14:52] LABS: Basophils # 0.1 K/mm3 (0-0.2); Basophils % 1.1 % (0.1-2.0); Eosinophils # 0.1 K/mm3 (0.0-0.4); Eosinophils % 1.6 % (0.1-12.0); Hematocrit 36.3 % (37.0-47.0); Lymphocytes # 1.5 K/mm3 (0.7-4.5); Lymphocytes % 23.8 % (10-50); Mean Corpuscular HGB Conc 33.1 g/dL (31.8-35.4); Mean Corpuscular Hemoglobin 25.8 pg (27.0-31.2); Mean Corpuscular Volume 77.9 fl (81-99); Mean Platelet Volume 8.4 fl (7.4-10.4); Monocytes # 0.4 K/mm3 (0.1-1.0); Monocytes % 6.8 % (1.7-9.3); Neutrophils # 4.2 K/mm3 (1.8-7.8); Neutrophils % 66.8 % (37.0-80.0); Platelet Count 355 K/mm3 (142-424); Red Blood Count 4.66 M/mm3 (4.20-5.40); Red Cell Distribution Width 15.1 % (11.5-17.5); White Blood Count 6.3 K/mm3 (4.8-10.8)
[2022-06-15 15:42] LABS: Alanine Aminotransferase 14 U/L (12-78); Alkaline Phosphatase 82 U/L (38-126); Anion Gap 8.9 mEq/L (5-15); Aspartate Amino Transferase 23 U/L (14-36); Bilirubin,Direct 0.1 mg/dl (0.0-0.4); Bilirubin,Indirect 0.3 mg/dL (0.0-0.9); Bilirubin,Total 0.4 mg/dl (0.2-1.3); Bilirubin,Unconjugated 0.2 mg/dL (0.0-1.1); Blood Urea Nitrogen 10 mg/dl (7-17); Calcium 9.2 mg/dl (8.4-10.2); Carbon Dioxide 32 mmol/L (22.0-30.0); Chloride 101 mmol/L (98-107); Chol/HDL Ratio 4.3 (1-3.5); Cholesterol 199 mg/dl (140-200); Estimated Glomerular Filt Rate 66 ml/min (>60); GFR (African American) 80 ML/MIN (>60); Glucose 110 mg/dl (74-100); HDL Cholesterol 46 mg/dl (40-60); Magnesium 2.1 mg/dl (1.6-2.3); Potassium 3.9 mmoL/L (3.5-5.1); Sodium 138 mmol/L (136-145); Total Protein,Serum 6.6 g/dl (6.3-8.2); Triglycerides 139 mg/dl (30-150); VLDL Cholesterol 28 mg/dL (0-40)
[2022-06-15 15:53] LABS: Direct LDL Cholesterol 125.75 mg/dL (100-129)
[2022-06-15 15:58] LABS: Free T4 (Free Thyroxine) 0.88 ng/dl (0.78-2.19)
[2022-06-15 16:12] LABS: Thyroid Stimulating Hormone 3.09 uIU/mL (0.465-4.68)
== END ==
PROVIDERS: PCP Nurse Practitioner Family; Visit Provider Nurse Practitioner
DX: R00.2 Palpitations (principal); I10 Essential (primary) hypertension
CPT/HCPCS: 36415; 80048; 80061; 80076; 83735; 84439; 84443; 85025

== ENCOUNTER 2023-04-20 11:05 | Emergency (ER) | payer OTHER, SELFPAY ==
[2023-04-20 11:20] VITALS: BP 136/89; PULSE 89; RESP 18; TEMP 36.8; O2SAT 98; BMI 33.7
--- NOTE | 2023-04-20 11:32 | EXP.UTC ---
Discharge Plan Disposition Patient Disposition: Home, Self-Care Condition: Good Prescriptions Prescriptions: New guaifenesin [Mucinex] 600 mg tablet extended release 12hr 600 mg PO BID PRN (Reason: cough) Qty: 20 0RF azithromycin [Zithromax Z-Vazquez] 250 mg tablet See Rx Instructions .ROUTE .COMPLEX 5 Days Qty: 6 0RF Rx Instructions: For 250 mg dose pack: take 500 mg today (day 1), then 250 mg for 4 days (days 2-5) No Action trazodone 100 mg tablet 100 mg PO QHS Qty: 30 1RF propranolol 120 mg capsule,extended release 24 hr 120 mg PO buspirone 10 mg tablet 20 mg PO BID 30 Days Qty: 120 1RF Vraylar 1.5 mg capsule 1.5 mg PO DAILY Qty: 30 1RF dextroamphetamine-amphetamine [Adderall] 10 mg tablet 10 mg PO BID Qty: 60 0RF Rx Instructions: administer doses at least 4-6 hours apart venlafaxine [Effexor XR] 150 mg capsule,extended release 24hr 150 mg PO DAILY Qty: 30 1RF losartan-hydrochlorothiazide 50-12.5 mg tablet 1 tab PO DAILY Qty: 30 11RF venlafaxine 75 mg capsule,extended release 24hr See Rx Instructions .ROUTE .COMPLEX Qty: 30 0RF Dose Instruction: TAKE 1 CAPSULE BY MOUTH ONCE DAILY WITH 150MG CAPSULE, TOTAL DOSE IS 225MG DAILY Rx Instructions: TAKE 1 CAPSULE BY MOUTH ONCE DAILY WITH 150MG CAPSULE, TOTAL DOSE IS 225MG DAILY Referrals Follow up/Referrals: Kenan Murillo MD [Primary Care Provider] - See instructions Activity Restrictions/Add. Instructions Additional Instructions/Restrictions: *Monitor Temp, Over the counter Motrin or Tylenol as directed/as needed Tylenol every 4 hours and Motrin every 6 hours (as long as your family doctor has told you that you can take it) for fever or pain. and straight to ER if unable to lower temp less than 101.0 after medication given *Warm salt water gargles may help to soothe the throat *Throat Lozenges? *Warm fluids like tea with honey may help to soothe the throat? *Sleep elevated *Humidifier/Vaporizer Follow up IMMEDIATELY for new or worsening symptoms or no Noticeable improvement over the next 48-72 hours. 911 for difficulty breathing or swallowing You were tested for today for Upper Respiratory Panel with COVID19 your test result should be back in the next 24 hours You may check your results on the [facility] [employer] [facility] Portal Clinical Impressions Clinical Impression: Viral syndrome Stand Alone Forms Stand Alone Forms: Work/School Release Instructions Patient Instructions: DI for Viral Syndrome Discharge ED Provider: Elisa Humphries [facility] [place] HPI General Stated complaint: cough, loss of taste and smell, headache, congest Mode of Arrival: Ambulatory Source of Information: Patient Limitations: No Limitations Time Seen by Provider: 04/20/23 11:33 Description of Symptoms (Recalled from Triage Doc. by RN): PATIENT C/O HEADACHE, SINUS CONGESTION, COUGH, AND LOSS OF TASTE AND SMELL SINCE TUESDAY HEENT Symptoms (Recalled from RN notes): Yes Resp Symptoms (Recalled from RN notes): Yes Skin Symptoms (Recalled from RN notes): No MS Symptoms (Recalled from RN notes): No Functional Status (Recalled from RN notes): WNL History of Present Illness Provider Complaint: Patient states she started feeling ill on Tuesday States that she has been having sinus congestion and pressure, headache, cough, and last night loss her taste and smell worried that she may have COVID so today she came in to get checked Related Data Home Medications Medication Instructions Recorded Confirmed propranolol 120 mg capsule,24 120 mg PO 05/27/22 03/09/23 hr,extended release Previous Rx's Medication Instructions Recorded trazodone 100 mg tablet 100 mg PO QHS #30 tabs 07/30/22 losartan 50 mg-hydrochlorothiazide 1 tab PO DAILY #30 tabs 09/27/22 12.5 mg tablet venlafaxine 75 mg capsule,extended See Rx Instructions .Route 02/14/23 release 24 hr .COMPLEX #30 caps buspirone 10
[2023-04-20 11:41] LABS: Adenovirus,PCR Not Detected (NotDetected); Coronavirus 19, PCR Not Detected (NotDetected); Coronavirus 229E Not Detected (NotDetected); Coronavirus NL63 Not Detected (NotDetected); Coronavirus OC43 Not Detected (NotDetected); Coronovirus HKU1,PCR Not Detected (NotDetected); Human Metapneumovirus Not Detected (NotDetected); Influenza A, PCR Not Detected (NotDetected); Influenza AH1, 2009 Not Detected (NotDetected); Influenza AH1, PCR Not Detected (NotDetected); Influenza AH3,PCR Not Detected (NotDetected); Influenza B, PCR Not Detected (NotDetected); Parainfluenza 1, PCR Not Detected (NotDetected); Parainfluenza 2, PCR Not Detected (NotDetected); Parainfluenza 3, PCR Not Detected (NotDetected); Parainfluenza 4, PCR Not Detected (NotDetected); Respiratory Syncytial Virus Not Detected (NotDetected); Rhinovirus/Enterovirus Not Detected (NotDetected)
[2023-04-20 11:45] VITALS: BP 136/89; PULSE 89; RESP 18; TEMP 36.8; O2SAT 98
== END 2023-04-20 11:48 | disposition home or self-care (01) ==
PROVIDERS: Emergency Provider Nurse Practitioner; PCP Emergency Medicine
DX: R51.9 Headache, unspecified (principal); R09.81 Nasal congestion; R43.9 Unspecified disturbances of smell and taste; B34.9 Viral infection, unspecified; F17.210 Nicotine dependence, cigarettes, uncomplicated; F90.9 Attention-deficit hyperactivity disorder, unspecified type; F41.1 Generalized anxiety disorder; F33.9 Major depressive disorder, recurrent, unspecified
CPT/HCPCS: 87632; 87635; 99204; 99212; G0463

== ENCOUNTER 2024-06-22 08:45 | Outpatient (CLI) | payer BC, SELFPAY | END 2024-06-22 23:59 | disposition home or self-care (01) | LOC: LAB.DROPOF 06-23 10:13 | PROVIDERS: PCP Nurse Practitioner Family; Visit Provider Nurse Practitioner Family | DX: J02.9 Acute pharyngitis, unspecified (principal); F17.210 Nicotine dependence, cigarettes, uncomplicated | CPT/HCPCS: 87070 ==

== ENCOUNTER 2024-07-01 12:49 | Emergency (ER) | payer BC, SELFPAY ==
[2024-07-01 13:02] VITALS: BP 180/82; PULSE 81; RESP 18; TEMP 36.9; O2SAT 96; BMI 40.7
--- NOTE | 2024-07-01 13:04 | EXP.UTC ---
Discharge Plan Disposition Patient Disposition: Home, Self-Care Condition: Good Prescriptions Prescriptions: New methylprednisolone 4 mg Tablets,Dose Pack 4 mg PO DIRECTED 6 Days Qty: 21 0RF Rx Instructions: Take 1 pack as directed for 6 days cefdinir 300 mg capsule 300 mg PO BID Qty: 20 0RF lidocaine HCl [Lidocaine Viscous] 2 % solution 1 applic mucous membrane QID PRN (Reason: throat pain) Qty: 100 0RF No Action propranolol 120 mg capsule,extended release 24 hr 120 mg PO DAILY buspirone 10 mg tablet See Rx Instructions .ROUTE .COMPLEX Qty: 120 0RF Dose Instruction: Take 2 tablets by mouth twice daily Rx Instructions: Take 2 tablets by mouth twice daily trazodone 100 mg tablet 100 mg PO QHS Qty: 30 1RF venlafaxine 150 mg capsule,extended release 24hr See Rx Instructions .ROUTE .COMPLEX Qty: 30 2RF Dose Instruction: Take 1 capsule by mouth once daily Rx Instructions: Take 1 capsule by mouth once daily venlafaxine 75 mg capsule,extended release 24hr See Rx Instructions .ROUTE .COMPLEX Qty: 30 2RF Dose Instruction: TAKE 1 CAPSULE BY MOUTH ONCE DAILY WITH 150 CAPSULE TOTAL DOSE IS 225MG DAILY Rx Instructions: TAKE 1 CAPSULE BY MOUTH ONCE DAILY WITH 150 CAPSULE TOTAL DOSE IS 225MG DAILY losartan-hydrochlorothiazide 50-12.5 mg tablet 1 tab PO DAILY Qty: 30 11RF Referrals Follow up/Referrals: Ryann Jackson APRN [Primary Care Provider] - See instructions Activity Restrictions/Add. Instructions Additional Instructions/Restrictions: Drink plenty of fluids. Take tylenol or ibuprofen for pain or fever. Take the medications as directed. Follow up with your regular doctor. GO TO THE ER FOR ANY WORSENING SYMPTOMS Clinical Impressions Clinical Impression: Pharyngitis Stand Alone Forms Stand Alone Forms: Work/School Release Instructions Patient Instructions: Sore Throat, DI for Pharyngitis/Tonsillopharyngitis -- Adult Print Language Print Language: [place] Discharge ED [place] Cesar [place]ustos [facility] [place] General Stated complaint: sore throat/tongue/mouth cough Time Seen by Provider: 07/01/24 13:04 Related Data Home Medications ?Medication ?Instructions ?Recorded ?Confirmed propranolol 120 mg capsule,24 120 mg PO DAILY 05/27/22 07/01/24 hr,extended release Previous Rx's ?Medication ?Instructions ?Recorded losartan 50 mg-hydrochlorothiazide 1 tab PO DAILY #30 tabs 09/27/22 12.5 mg tablet buspirone 10 mg tablet See Rx Instructions .Route 06/01/24 .COMPLEX #120 tabs trazodone 100 mg tablet 100 mg PO QHS #30 tabs 06/01/24 venlafaxine 150 mg See Rx Instructions .Route 06/01/24 capsule,extended release 24 hr .COMPLEX #30 caps venlafaxine 75 mg capsule,extended See Rx Instructions .Route 06/01/24 release 24 hr .COMPLEX #30 caps cefdinir 300 mg capsule 300 mg PO BID #20 caps 07/01/24 lidocaine HCl 2 % mucosal solution 1 applic mucous membrane QID PRN 07/01/24 (Lidocaine Viscous) throat pain #100 mL methylprednisolone 4 mg tablets in 4 mg PO DIRECTED 6 days #21 tabs 07/01/24 a dose pack Allergies Allergy/AdvReac Type Severity Reaction Status Date / Time Penicillins Allergy Unknown Unknown Verified 06/22/24 08:49 allergy reaction [facility] Disclaimer: The information contained in this section may have been updated after the patient was seen, as this information can be updated by other users. Medical History Palpitations Insomnia Major depressive disorder Generalized anxiety disorder Attention deficit disorder (ADD) in adult Social History Smoking Status: Current every day smoker tobacco type: cigarettes packs per day: 1 alcohol intake: current alcohol intake frequency: a few times a week (she thinks over the past 6 months; she has picked up on this; maybe 3-4 times per week; has a martini or 2; does not drink with the purpose of getting drunk) substance use type: marijuana (she states that she did smoke a couple months ago; at a [employer] outing; she used to smoke daily; back in the mid ), crack/cocaine (sopme when she lived in [place]; in 1994), club/[employer] designer drugs (ectacy a few times; when out with friends) and methamphetamine (in 1999; when she mvoed to [place]) current occupational status: employed Travel in the last 8 weeks: None housing: house number of children: 1 caffeine: Yes Have you lived/traveled outside US in past 30 days?: No Contact w/someone who lives/traveled outside US past 30 days?: No Exposure to someone with infectious disease in past 14 days?: No Do you have a fever (greater than 100.4 F or 38 C)?: No Have you tested positive for COVID-19: No Exposed to someone with COVID-19 in past 14 days?: No Do you have a sore throat?: Yes Do you have a cough?: Yes Do you have any weakness?: No Do you have any diarrhea?: No Are you experiencing any unusual bleeding?: No Do you have any muscle aches/pain?: No Do you have any abdominal pain?: No Are you experiencing loss of taste or smell?: No ROS Obtained: Yes All systems reviewed & no additional complaints except as documented Constitutional Constitutional: Reports chills and Reports fever(s) Eyes Eyes: Denies eye discharge ENT Ears, Nose, Mouth, and Throat: Reports as per HPI Cardiovascular Cardiovascular: Denies chest pain Respiratory Respiratory: Denies chest congestion and Reports cough Gastrointestinal Gastrointestingal: Reports nausea; Denies abdominal pain, constipation, cramping, diarrhea or vomiting Musculoskeletal Musculoskeletal: Denies arthralgias Integumentary/Breasts Skin/Breast: Denies rash Neurologic Neurologic: Denies paresthesias Physical Exam General General appearance: alert and in no apparent distress Head Head exam: atraumatic, normocephalic and normal inspection Eye Eye exam: Present normal appearance, PERRL and EOMI ENT ENT exam: Present mucous membranes moist and normal external ear exam Expanded ENT Exam TM/Canal exam: Bilateral TM: erythema and bulging Nose exam: Absent sinus tenderness Mouth exam: Present normal external inspection; Absent drooling Teeth exam: Present normal inspection Throat exam: Present tonsillar erythema, tonsillomegaly and tonsillar exudate Neck Neck exam: Present normal inspection, full ROM and trachea midline; Absent tenderness, meningismus or lymphadenopathy Chest Chest inspection: Present normal inspection and symmetric chest wall rise; Absent tenderness Respiratory Respiratory exam: Present normal lung sounds bilaterally; Absent respiratory distress, wheezes, stridor or accessory muscle use Cardiovascular Cardiovascular exam: Present regular rate and normal rhythm; Absent systolic murmur or diastolic murmur Abdominal Exam Abdominal exam: Present soft and normal bowel sounds; Absent distention, tenderness, guarding, rebound or rigidity Extremities Exam Extremities exam: Present normal inspection and normal capillary refill; Absent calf tenderness Back Exam Back exam: Present normal inspection and full ROM; Absent tenderness, CVA tenderness (R) or CVA tenderness (L) Neurological Exam Neurological exam: Present alert, oriented X3 and CN II-XII intact Psychiatric Psychiatric exam: Present normal affect and normal mood Skin Skin exam: Present warm, dry, intact and normal color Medical Decision Making Medical Records Medical records reviewed: No I reviewed the patient's medical records. Screening: Per USPSTF and CDC recommendations, given the prevalence of disease in our region, it is our hospital?s policy to screen for HIV and viral Hepatitis for all patients aged 18 and over and those with ongoing risk factors. Archie Inquiry Pt receiving controlled substance: No Lab Data Lab results reviewed: Yes I reviewed the patient's lab results.
[2024-07-01 13:11] LABS: UTC Strep Screen (Rapid) Negative (Negative)
[2024-07-01 13:40] VITALS: BP 180/82; PULSE 81; RESP 18; TEMP 36.9
== END 2024-07-01 13:41 | disposition home or self-care (01) ==
PROVIDERS: Emergency Provider Nurse Practitioner Family; PCP Nurse Practitioner Family
DX: J02.9 Acute pharyngitis, unspecified (principal)
CPT/HCPCS: 87880; 99213; G0381

== ENCOUNTER 2024-07-06 11:53 | Outpatient (CLI) | payer BC, SELFPAY ==
[2024-07-06 12:30] LABS: Monoscreen (Rapid) Negative (Negative)
[2024-07-06 12:42] LABS: Albumin Level 3.9 g/dl (3.5-5.0); Chloride 102 mmol/L (98-107); Sodium 137 mmol/L (136-145)
[2024-07-06 12:45] LABS: Alanine Aminotransferase 29 U/L (12-78); Albumin/Globulin Ratio 1.6 (1.1-1.8); Alkaline Phosphatase 79 U/L (38-126); Anion Gap 8.8 mEq/L (5-15); Aspartate Amino Transferase 28 U/L (14-36); Bilirubin,Total 0.3 mg/dl (0.2-1.3); Blood Urea Nitrogen 13 mg/dl (7-17); Calcium 9.1 mg/dl (8.4-10.2); Carbon Dioxide 31 mmol/L (22.0-30.0); Estimated Glomerular Filt Rate 75 ml/min (>60); GFR (African American) 91 ML/MIN (>60); Globulin 2.5 g/dL (1.3-3.2); Glucose 86 mg/dl (74-100); Potassium 4.8 mmoL/L (3.5-5.1); Total Protein,Serum 6.4 g/dl (6.3-8.2)
[2024-07-06 12:52] LABS: Basophils # 0.1 K/mm3 (0-0.2); Basophils % 0.4 % (0.1-2.0); Eosinophils # 0.1 K/mm3 (0.0-0.4); Eosinophils % 0.7 % (0.1-12.0); Hematocrit 41.3 % (37.0-47.0); Hemoglobin 12.2 g/dL (12.2-16.2); Lymphocytes # 2.8 K/mm3 (0.7-4.5); Lymphocytes % 24.6 % (10-50); Mean Corpuscular HGB Conc 29.5 g/dL (31.8-35.4); Mean Corpuscular Hemoglobin 23.2 pg (27.0-31.2); Mean Corpuscular Volume 78.5 fl (81-99); Monocytes # 0.9 K/mm3 (0.1-1.0); Monocytes % 7.9 % (1.7-9.3); Neutrophils # 7.5 K/mm3 (1.8-7.8); Platelet Count 400 K/mm3 (142-424); Red Blood Count 5.26 M/mm3 (4.20-5.40); Red Cell Distribution Width 17.3 % (11.5-17.5); White Blood Count 11.4 K/mm3 (4.8-10.8)
[2024-07-06 13:39] LABS: Coronavirus 19, PCR Not Detected (NotDetected); Influenza A, PCR Not Detected (NotDetected); Influenza B, PCR Not Detected (NotDetected)
[2024-07-09 12:32] LABS: EBV Ab VCA, IgG >600.0 U/mL (0.0-17.9); EBV Ab VCA, IgM <36.0 U/mL (0.0-35.9)
== END 2024-07-06 23:59 | disposition home or self-care (01) ==
PROVIDERS: PCP Nurse Practitioner Family; Visit Provider Nurse Practitioner Family
DX: J02.9 Acute pharyngitis, unspecified (principal); R53.1 Weakness; R53.83 Other fatigue; R50.9 Fever, unspecified; Z72.0 Tobacco use
CPT/HCPCS: 36415; 80053; 85025; 86318; 86664; 86665; 87636

== ENCOUNTER 2024-07-20 09:39 | Outpatient (CLI) | payer BC, SELFPAY ==
[2024-07-20 11:42] LABS: T4 (Thyroxine) 9.3 ug/dl (5.53-11.0)
[2024-07-20 11:56] LABS: Thyroid Stimulating Hormone 2.48 uIU/mL (0.465-4.68)
[2024-07-20 11:59] LABS: Ferritin 7.57 ng/ml (11.1-264)
[2024-07-20 12:15] LABS: Vitamin B12 499 pg/mL (239-931)
[2024-07-21 08:14] LABS: Thyroid Peroxidase Antibodies 11 IU/mL (0-34); Triiodothyronine (T3) Free 3.3 pg/mL (2.0-4.4)
[2024-07-23 17:11] LABS: Thyroglobulin Level <1.0 IU/mL (0.0-0.9)
[2024-07-25 10:10] LABS: Vitamin B6 17.2 ug/L (3.4-65.2)
[2024-07-26 18:54] LABS: Vitamin B1 77.7 nmol/L (66.5-200.0)
== END 2024-07-20 23:59 | disposition home or self-care (01) ==
LOC: LAB 09:40
PROVIDERS: PCP Nurse Practitioner Family; Visit Provider Nurse Practitioner Family
DX: G62.9 Polyneuropathy, unspecified (principal); R79.89 Other specified abnormal findings of blood chemistry; I10 Essential (primary) hypertension; Z72.0 Tobacco use
CPT/HCPCS: 36415; 82607; 82728; 83735; 84207; 84425; 84436; 84439; 84443; 84481; 86376; 86800

== ENCOUNTER 2024-12-11 15:21 | Outpatient (CLI) | payer BC, SELFPAY ==
--- OUTSIDE RECORDS SUMMARY | 2024-12-09 07:03 | XMS_ITS | Encounter Summary ---
Author Organization [employer] Address [address] [place] [address] Care Team Providers Care Recruitment Manager Name Role Phone Gisel Roman APRN Primary Care Provider [phone] Reason for Visit * Reason Comments Leg Pain Pt presents to ED wi th L leg pain onset this AM @ 6am. Pt reports having cut herself shaving half a week ago to posterior leg and now has pain from heel to posterior knee. Pt reports R groin pain. Encounter Details Date Type Department Care Team ([facility] st Contact Info) Description 12/09/2024 7:03 AM EDT - 12/09/2024 10:57 AM EDT Emergency [facility] Emergency Department [address] [place] [address] Ana Ji [facility] [place] [address] Left leg pain (Primary Dx); Cellulitis of [...] sent through Care Everywhere. * Cellulitis Adult Czen-iv-Nvlp (Syrian) documented in this encounter Medications at Time of Discharge benzonatate (TESSALON) 200 MG capsuleIndicatio ns:Cough Take 1 capsule (200 mg total) by mouth 3 (three) times daily as needed for cough for up to 7 days. 21 capsule 12/07/2024 5 busPIRone (BUSPAR) 10 MG tablet Take 2 tablets (20 mg total) by mouth 2 (two) times daily. 05/14/2024 clindamycin (CLEOCIN) 300 MG capsule Take 2 capsules (600 mg total) by mouth 3 (three) times daily for 10 days. 60 capsule 12/09/2024 5 dextroamphetamin e-amphetamine (ADDERALL) 10 mg tab tablet 10 MG orally twice a day; administer doses at least 4-6 hours apart 06/01/2024 HYDROcodone-acet aminophen (NORCO) 5-325 mg per tablet Take 1 tablet by mouth every 6 (six) hours as needed for pain for up to 3 days. Max Daily Amount: 4 tablets 10 tablet 12/09/2024 5 venlafaxine XR (EFFEXOR-XR) 150 MG 24 hr capsule Take 1 capsule (150 mg total) by mouth daily. 05/03/2024 venlafaxine XR (EFFEXOR-XR) 75 MG 24 hr capsule Take by mouth. 05/03/2024 documented as of this encounter ED Notes [...] of 12/09/24 1046 Sun Dec 09, 2024 075 Left ankle x-ray: Images interpreted by me no fracture seen [SP] 0750 Patient has not decided that she will [...] lower leg is negative for DVT [SP] 1042 I explained the findings to the patient. [...] Specialty: Behavioral Health Relationship: PCP - General [address] [place] [address] [place] [address] Next Steps: Schedule an appointment as soon [...] 136 - 146 meq/L 12/09/2024 8:21 AM T [facility] Potassium 3.9 3.5 - 5.1 meq/L 12/09/2024 8:21 AM EDT [facility] Chloride 104 102 - 112 meq/L 12/09/2024 8:21 AM EDT [facility] CO2 26 21 - 32 meq/L 12/09/2024 8:21 AM EDT [facility] Calcium 8.7 8.5 - 10.1 mg/dL 12/09/2024 8:21 AM T [facility] Glucose 94 74 - 106 mg/dL 12/09/2024 8:21 AM T [facility] BUN 8 7 - 22 mg/dL 12/09/2024 8:21 AM T [facility] Creatinine 0.82 0.55 - 1.02 mg/dL 12/09/2024 8:21 AM T [facility] BUN/Creatinine 10 8 - 20 12/09/2024 8:21 AM T [facility] Albumin 3.3(L) 3.4 - 5.0 g/dL 12/09/2024 8:21 AM T [facility] Alkaline Phosphatase 88 27 - 136 U/L 12/09/2024 8:21 AM T [facility] ALT 20 12 - 78 U/L 12/09/2024 8:21 AM T [facility] AST 19 5 - 37 U/L 12/09/2024 8:21 AM T [facility] Total Bilirubin 0.5 0.2 - 1.3 mg/dL 12/09/2024 8:21 AM T [facility] Protein, Total 6.7 6.4 - 8.2 gm/dL 12/09/2024 8:21 AM T [facility] Anion Gap 9 9 - 20 12/09/2024 8:21 AM T [facility] A/G Ratio 1.0(L) 1.1 - 2.5 12/09/2024 8:21 AM EDT [facility] Globulin 3.4 1.5 - 4.5 g/dL 12/09/2024 8:21 AM EDT [facility] Osmolality Calc 268.2 mOsm/kg 8:21 AM EDT [facility] eGFR (mL/min/1.73m2) >60 >=60 mL/min/1.7 3m2 12/09/2024 8:21 AM EDT [facility] Comment:ESTIMATED GFR IS NOT ACCURATE CREATININE CLEARANCE IN PREDICTING GLOMERULAR FILTRATION RATE. ESTIMATED GFR IS NOT APPLICABLE FOR DIALYSIS PATIENTS. Blood Venipuncture / Unknown 12/09/2024 7:53 AM EDT 12/09/2024 8:01 AM EDT us Ana Ji DO LAB BLOOD ORDERABLES Final Resul t [facility] [address] [phone] * (ABNORMAL) CBC with Auto Diff (12/09/2024 7:53 AM EDT) WBC 12.5(H) 3.9 - 10.0 K/ L 12/09/2024 8:05 AM EDT [facility] RBC 4.30 3.93 - 6.08 M/ L 12/09/2024 8:05 AM EDT [facility] Hemoglobin 12.1 11.2 - 15.7 GM/DL 12/09/2024 8:05 AM EDT [facility] Hematocrit 37.3 34.1 - 44.9 % 12/09/2024 8:05 AM EDT [facility] MCV 87 79 - 95 fL 12/09/2024 8:05 AM EDT [facility] MCH 28.1 25.6 - 32.2 pg 12/09/2024 8:05 AM EDT [facility] MCHC 32.4 32.2 - 36.5 GM/DL 12/09/2024 8:05 AM EDT [facility] RDW 15.3(H) 11.6 - 14.4 % 12/09/2024 8:05 AM EDT [facility] Platelets 285 163 - 369 K/CU MM 12/09/2024 8:05 AM EDT [facility] MPV 9.9 9.4 - 12.4 fL 12/09/2024 8:05 AM EDT [facility] % Neutros 70 34 - 71 % 12/09/2024 8:05 AM EDT [facility] % Lymphs 18(L) 19 - 53 % 12/09/2024 8:05 AM EDT [facility] % Monos 10 4 - 13 % 12/09/2024 8:05 AM EDT [facility] % Eos 1 1 - 7 % 12/09/2024 8:05 AM EDT [facility] % Baso 1 0 - 1 % 12/09/2024 8:05 AM EDT [facility] # Neutros 8.74(H) 1.56 - 6.13 K/ L 12/09/2024 8:05 AM EDT [facility] # Lymphs 2.27 1.18 - 3.74 K/ L 12/09/2024 8:05 AM EDT [facility] # Monos 1.29(H) 0.24 - 0.82 K/ L 12/09/2024 8:05 AM EDT [facility] # Eos 0.08 0.04 - 0.54 K/ L 12/09/2024 8:05 AM EDT [facility] # Baso 0.07 0.01 - 0.08 K/ L 12/09/2024 8:05 AM EDT [facility] Immature Granulocytes-Re lative 0.40 0.00 - 0.60 % 12/09/2024 8:05 AM EDT [facility] # IG 0.05 0.00 - 0.05 K/uL 12/09/2024 8:05 AM EDT [facility] Blood Venipuncture / Unknown 12/09/2024 7:53 AM EDT 12/09/2024 8:01 AM EDT Narrative [facility] - 12/09/2024 8:05 AM EDT When [...] DO LAB BLOOD ORDERABLES Final Resul t [facility] [address] [phone] * XR ankle 3 views left (12/09/2024 [...] dose 0757 (Given - Provid er: Arthur Hubabrd RN) morphine injection 4 mg (COMPLETED) 4 mg Once, intravenous, On 12/09/24 at 0920, For 1 dose 0937 (Given - Provid er: Arthur Hubbard RN) documented in this encounter Care Teams Recruitment Manager Relationship Specialty Start Date End Date Gisel Roman APRN [address] [place] [address] PCP - General Behavioral Health 06/09/24 documented as of this encounter
[2024-12-11 16:45] LABS: Anti-Centromere B Antibodies ND; Anti-DNA (DS) Ab Qn ND; Anti-Jo-1 ND; Antichromatin Antibodies ND; Antiscleroderma-70 Antibodies ND; RNP Antibodies ND; Sjogren's Anti-SS-A ND; Sjogren's Anti-SS-B ND
[2024-12-11 17:16] LABS: Basophils # 0.1 K/mm3 (0-0.2); Basophils % 0.8 % (0.1-2.0); Eosinophils # 0.1 Kmm3 (0.0-0.4); Hematocrit 38.8 % (37.0-47.0); Hemoglobin 12.3 g/dL (12.2-16.2); Immature Granulocytes # 0.04 10^3uL; Immature Granulocytes % 0.5 %; Lymphocytes # 1.4 K/mm3 (0.7-4.5); Lymphocytes % 18.1 % (10-50); Mean Corpuscular HGB Conc 31.7 g/dL (31.8-35.4); Mean Corpuscular Hemoglobin 27.6 pg (27.0-31.2); Mean Platelet Volume 10.9 fl (7.4-10.4); Monocytes # 0.8 K/mm3 (0.1-1.0); Monocytes % 9.9 % (1.7-9.3); Neutrophils # 5.5 K/mm3 (1.8-7.8); Neutrophils % 69.7 % (37.0-80.0); Nucleated Red Blood Cells # 0 10^3/uL; Nucleated Red Blood Cells % 0 %; Platelet Count 319 K/mm3 (142-424); Red Blood Count 4.46 M/mm3 (4.20-5.40); Red Cell Distribution Width 15.4 % (11.5-17.5); Red Cell Distribution Width-SD 48.6 fL; White Blood Count 7.9 K/mm3 (4.8-10.8)
[2024-12-11 17:46] LABS: Albumin Level 4.3 g/dl (3.5-5.0); Chloride 96 mmol/L (98-107); Potassium 4.5 mmoL/L (3.5-5.1); Sodium 136 mmol/L (136-145)
[2024-12-11 17:49] LABS: Alanine Aminotransferase 17 U/L (12-78); Albumin/Globulin Ratio 1.5 (1.1-1.8); Alkaline Phosphatase 99 U/L (38-126); Anion Gap 14.5 mEq/L (5-15); Aspartate Amino Transferase 30 U/L (14-36); Bilirubin,Total 0.3 mg/dl (0.2-1.3); Blood Urea Nitrogen 6 mg/dl (7-17); Carbon Dioxide 30 mmol/L (22.0-30.0); Estimated Glomerular Filt Rate 105 ml/min (>60); GFR (African American) 127 ML/MIN (>60); Globulin 2.9 g/dL (1.3-3.2); Glucose 93 mg/dl (74-100); Iron 47 ug/dL (37-170); Total Protein,Serum 7.2 g/dl (6.3-8.2)
[2024-12-11 17:57] LABS: C-Reactive Protein 49.6 mg/L (0-4)
[2024-12-11 17:58] LABS: Total Iron Binding Capacity 352 ug/dL (265-497)
[2024-12-11 17:59] LABS: NT Pro Brain Natriuretic Pep. 365 pg/mL (0-125)
[2024-12-11 18:12] LABS: 25-OH Vitamin D, Total 91.6 ng/mL (30-100)
[2024-12-11 18:21] LABS: Thyroid Stimulating Hormone 0.94 uIU/mL (0.465-4.68)
[2024-12-11 18:25] LABS: Ferritin 17.6 ng/ml (11.1-264)
[2024-12-11 18:58] LABS: Vitamin B12 806 pg/mL (239-931)
[2024-12-11 19:33] LABS: Hemoglobin A1C 6.1 % (4.0-6.0)
[2024-12-12 10:13] LABS: Antinuclear Antibodies (ANA) Negative (Negative)
--- OUTSIDE RECORDS SUMMARY | 2024-12-12 14:06 | XMS_ITS | Clinical Summary ---
Author Organization [employer] Address [address] [place] [address] Care Team Providers Care Circuit Board Assembler Name Role Phone Gisel Roman APRN Primary Care Provider [phone] Allergies Active Allergy Reactions Criticality Noted Date Comments Penicillin 06/09/2024 Medications venlafaxine XR (EFFEXOR-XR) 150 MG 24 hr capsule Take 1 capsule (150 mg total) by mouth daily. 4 Active venlafaxine XR (EFFEXOR-XR) 75 MG 24 hr capsule Take by mouth. 4 Active dextroamphetami ne-amphetamine (ADDERALL) 10 mg tab tablet 10 MG orally twice a day; administer doses at least 4-6 hours apart 4 Active busPIRone (BUSPAR) 10 MG tablet Take 2 tablets (20 mg total) by mouth 2 (two) times daily. 4 Active benzonatate (TESSALON) 200 MG capsuleIndicati ons:Cough Take 1 capsule (200 mg total) by mouth 3 (three) times daily as needed for cough for up to 7 days. 21 capsule 5 12/15/19 25 Active clindamycin (CLEOCIN) 300 MG capsule Take 2 capsules (600 mg total) by mouth 3 (three) times daily for 10 days. 60 capsule 5 12/20/19 25 Active HYDROcodone-gomez taminophen (NORCO) 5-325 mg per tablet Take 1 tablet by mouth every 6 (six) hours as needed for pain for up to 3 days. Max Daily Amount: 4 tablets 10 tablet 5 12/13/19 25 Active Active Problems Problem Noted Date Diagnosed Date Abnormal uterine bleeding (AUB) 06/11/2024 Assessment & Plan (06/11/2024 11:14 AM EST): Fibroid is stable and she is usually without symptoms. Plan for yearly US for fibroid. She responded well to Provera. Will check TSH and FSH today and follow up on bleeding at annual exam. Encounters Date Type Department Care Team Description 12/09/2024 7:03 AM EDT - 12/09/2024 10:57 AM EDT Emergency [facility] Emergency Department [address] [place] [address] Ana Ji DO Left leg pain (Primary Dx); Cellulitis of left lower extremity Discharge Disposition: Home or Self Care 12/09/2024 Travel 12/07/2024 Orders Only [facility] [employer] - [place] [address] [place] [address] Alissa Osuna RN Cough (Primary Dx) from Last 3 Months Family History Medical History Relation Name Comments Breast cancer Maternal Grandmother Relation Name Status Comments Maternal Grandmother Social History Tobacco Use Types Packs/Day Years Used Date Smoking Tobacco: Never Smokeless Tobacco: Current Tobacco Cessation:Ready to Q uit: Not Asked; Counseling Given: Not Answered Comments:vapes Alcohol Use Standard Drinks/Week Comments Yes 0 (1 standard drink = 0.6 oz pur e alcohol) Occasional Comments Unknown Sex and Gender Information Value Date Recorded Sex Assigned at Not on file Legal Sex Female 5:52 PM CDT Gender Identity Not on file Sexual Orientation Not on file Last Filed Vital Signs Vital Sign Reading [...] Mass Index 46.06 12/09/2024 7:07 AM EDT Plan of Treatment Health Maintenance Due Date Last Done Comments CT Colonography 1971 Colonoscopy 1971 Colorectal Cancer Screening 1971 FOBT/FIT 1971 Fit-DNA (Cologuard) 1971 Sigmoidoscopy 1971 Depression Screening (12+) 1983 Tobacco Cessation Counseling and Screening (12+) 1983 HIV Screening 1986 Hepatitis C Screening 1989 DTAP/TDAP/TD VACCINES (1 - Tdap) 1990 Lipid Panel 2016 Pneumococcal 50+ years (1 of 1 - PCV) 2021 Shingles Vaccine (Zoster) (1 of 2) 2021 Breast Cancer Screening 07/23/2022 07/23/2020 Pap Smear 05/01/2023 05/01/2020 COVID-19 VACCINE ( season) 2024, 06/18/2020 Influenza Vaccine (Season Ended) 2025 Procedures Procedure Name Priority Date/Time Associated Diagnosis Comments US DOPPLER VENOUS LEG LEFT STAT 12/09/2024 10:[address] LOWER EXTREMITY WITHOUT IV CONTRAST LEFT STAT 12/09/2024 8:36 AM EDT COMPREHENSIVE METABOLIC PANEL STAT 12/09/2024 7:53 AM EDT CBC W/ AUTO DIFF STAT 12/09/2024 7:53 AM EDT XR ANKLE 3 VIEWS LEFT STAT 12/09/2024 7:42 AM EDT MM DIGITAL MAMMO SCREEN WITH ARIS BILATERAL Routine 07/23/2020 8:52 AM EST PAP SMEAR, THIN PREP (MCT BKR) AP Routine 05/01/2020 12:00 AM EST from Last 3 Months or Most Recently Relevant to Health Maintenance Results * US doppler venous leg left [...] interpreted, and dictated by Zohaib Martinez MD Ana Garrison DO [facility] ORDERABLES Final Result * (ABNORMAL) CBC with Auto Diff (12/09/2024 7:53 AM EDT) WBC 12.5(H) 3.9 - 10.0 K/ L 12/09/2024 8:05 AM EDT [facility] RBC 4.30 3.93 - 6.08 M/ L 12/09/2024 8:05 AM EDT [facility] Hemoglobin 12.1 11.2 - 15.7 GM/DL 12/09/2024 8:05 AM EDT [facility] Hematocrit 37.3 34.1 - 44.9 % 12/09/2024 8:05 AM EDT [facility] MCV 87 79 - 95 fL 12/09/2024 8:05 AM EDT [facility] MCH 28.1 25.6 - 32.2 pg 12/09/2024 8:05 AM EDT [facility] MCHC 32.4 32.2 - 36.5 GM/DL 12/09[facility]2024 [facility] RDW 15.3(H) 11.6 - 14.4 % 12/09/2024 8:05 AM EDT [facility] Platelets 285 163 - 369 K/CU MM 12/09/2024 8:05 AM [facility] MPV 9.9 9.4 - 12.4 fL 12/09/2024 8:05 AM [facility] % Neutros 70 34 - 71 % 12/09/2024 8:05 AM EDT [facility] % Lymphs 18(L) 19 - 53 % 12/09/2024 8:05 AM EDT [facility] % Monos 10 4 - 13 % 12/09/2024 8:05 AM EDT [facility] % Eos 1 1 - 7 % 12/09/2024 8:05 AM [facility] % Baso 1 0 - 1 % 12/09/2024 8:05 AM [facility] # Neutros 8.74(H) 1.56 - 6.13 K/ L 12/09/2024 8:05 AM EDT [facility] # Lymphs 2.27 1.18 - 3.74 K/ L 12/09/2024 8:05 AM T [facility] # Monos 1.29(H) 0.24 - 0.82 K/ L 12/09/2024 8:05 AM [facility] # Eos 0.08 0.04 - 0.54 K/ L 12/09/2024 8:05 AM EDT [facility] # Baso 0.07 0.01 - 0.08 K/ L 12/09/2024 8:05 AM EDT [facility] Immature Granulocytes-Re lative 0.40 0.00 - 0.60 % 12/09/2024 8:05 AM [facility] # IG 0.05 0.00 - 0.05 K/uL 12/09/2024 8:05 AM [facility] Blood Venipuncture / Unknown 12/09/2024 7:53 AM EDT 12/09/2024 8:01 AM EDT [facility] - 12/09/2024 8:05 AM EDT [...] DO LAB BLOOD ORDERABLES Final Resul t [facility] [address] [phone] * (ABNORMAL) Comprehensive metabolic panel (12/09/2024 7:53 AM EDT) Sodium 135(L) 136 - 146 meq/L 12/09/2024 8:21 AM EDT [facility] Potassium 3.9 3.5 - 5.1 meq/L 12/09/2024 8:21 AM EDT [facility] Chloride 104 102 - 112 meq/L 12/09/2024 8:21 AM EDT [facility] CO2 26 21 - 32 meq/L 12/09/2024 8:21 AM EDT [facility] Calcium 8.7 8.5 - 10.1 mg/dL 12/09/2024 8:21 AM EDT [facility] Glucose 94 74 - 106 mg/dL 12/09/2024 8:21 AM EDT [facility] BUN 8 7 - 22 mg/dL 12/09/2024 8:21 AM EDT [facility] Creatinine 0.82 0.55 - 1.02 mg/dL 12/09/2024 8:21 AM EDT [facility] BUN/Creatinine 10 8 - 20 12/09/2024 8:21 AM EDT [facility] Albumin 3.3(L) 3.4 - 5.0 g/dL 12/09/2024 8:21 AM EDT [facility] Alkaline Phosphatase 88 27 - 136 U/L 12/09/2024 8:21 AM EDT [facility] ALT 20 12 - 78 U/L 12/09/2024 8:21 AM EDT [facility] AST 19 5 - 37 U/L 12/09/2024 8:21 AM EDT [facility] Total Bilirubin 0.5 0.2 - 1.3 mg/dL 12/09/2024 8:21 AM EDT [facility] Protein, Total 6.7 6.4 - 8.2 gm/dL 12/09/2024 8:21 AM EDT [facility] Anion Gap 9 9 - 20 12/09/2024 8:21 AM EDT [facility] A/G Ratio 1.0(L) 1.1 - 2.5 12/09/2024 8:21 AM EDT [facility] Globulin 3.4 1.5 - 4.5 g/dL 12/09/2024 8:21 AM EDT [facility] Osmolality Calc 268.2 mOsm/kg 8:21 AM EDT [facility] eGFR (mL/min/1.73m2) >60 >=60 mL/min/1.7 3m2 12/09/2024 8:21 AM EDT [facility] Comment:ESTIMATED GFR IS NOT ACCURATE CREATININE CLEARANCE IN PREDICTING GLOMERULAR FILTRATION RATE. ESTIMATED GFR IS NOT APPLICABLE FOR DIALYSIS PATIENTS. Blood Venipuncture / Unknown 12/09/2024 7:53 AM EDT 12/09/2024 8:01 AM EDT us Ana Ji DO LAB BLOOD ORDERABLES Final Resul t [facility] [address] [phone] * XR ankle 3 views left (12/09/2024 [...] IMG DIAGNOSTIC IMAGING ORDERABLE S Final Result * MM digital mammo screen with aris bilateral (07/23/2020 8:52 AM EST) Anatomical Region Laterality Modality Breast Bilateral Mammography 07/23/2020 8:52 AM EST Narrative 07/23/2020 3:40 PM EST PROCEDURE: Digital screening mammogram with tomosynthesis. REASON FOR EXAM: Routine screening. FAMILY HISTORY: Weak family history of breast cancer. COMPARISON STUDY: previous mammograms performed elsewhere are currently not available for comparison.. FINDINGS: Craniocaudal and mediolateral oblique images of both breasts were obtained in 2D, C-view, and 3D modes. The breast tissue has pattern b (scattered fibroglandular densities). A few punctate and coarse calcifications are noted. There is no evidence of dominant mass, architectural distortion, or suspicious calcifications. The mammogram was interpreted with the benefit of computer aided detection (CAD). FINAL IMPRESSION: ACR BI-RADS 2: Benign findings. RECOMMENDATIONS: Annual screening mammography. A letter including results and recommendations was sent to the patient. Density notification was included for patients with pattern 3 or 4 breast tissue. Patient information was entered into a reminder system with a target due date for the next mammogram. At our facility, a tejon marker is positioned over a visible skin lesion and a linear marker is used to indicate a scar. A triangular marker is placed on a self reported palpable finding. Procedure Note Heike Perdomo MD - 10/05/2022 PROCEDURE: Digital screening mammogram with tomosynthesis. REASON FOR EXAM: Routine screening. FAMILY HISTORY: Weak family history of breast cancer. COMPARISON STUDY: previous mammograms performed elsewhere are currently not available for comparison.. FINDINGS: Craniocaudal and mediolateral oblique images of both breasts were obtained in 2D, C-view, and 3D modes. The breast tissue has pattern b (scattered fibroglandular densities). A few punctate and coarse calcifications are noted. There is no evidence of dominant mass, architectural distortion, or suspicious calcifications. The mammogram was interpreted with the benefit of computer aided detection (CAD). FINAL IMPRESSION: ACR BI-RADS 2: Benign findings. RECOMMENDATIONS: Annual screening mammography. A letter including results and recommendations was sent to the patient. Density notification was included for patients with pattern 3 or 4 breast tissue. Patient information was entered into a reminder system with a target due date for the next mammogram. At our facility, a tejon marker is positioned over a visible skin lesion and a linear marker is used to indicate a scar. A triangular marker is placed on a self reported palpable finding. Heike Perdomo MD [facility] MAMMOGRAPHY ORDERABLES [facility] Result * Pap Smear, Thin Prep (05/01/2020 12:00 AM EST) Vaginal/Cervical/ Endocervical OTHER / Unknown Sherry Mendoza DO PATHOLOGY/CYTOLOGY ORDERABLES Fi nal Result [facility] [address] [place] [id number] from Last 3 Months or Most Recently Relevant to Health Maintenance Insurance [facility] EMP Care Teams Circuit Board Assembler Relationship Specialty Start Date End Date Gisel Roman, MAYI [address] [place] [address] PCP - General Behavioral Health 06/09/24
--- OUTSIDE RECORDS SUMMARY | 2024-12-12 14:06 | XMS_ITS | Referral Summary ---
Author Organization [employer] Address [address] [place] [address] Care Team Providers Care Cream Dipper Name Role Phone Gisel Roman APRN Primary Care Provider [phone] Encounters Date Type Department Care Team Description 12/09/2024 Travel 12/09/2024 7:03 AM EDT - 12/09/2024 10:57 AM EDT Emergency [facility] Emergency Department [address] [place] [address] Aan Ji DO Left leg pain (Primary Dx); Cellulitis of left lower extremity Discharge Disposition: Home or Self Care 12/07/2024 Orders Only [facility] SOLVENT PLANT TREATER - [place] [address] [facility] [address] [place] [address] Alissa Osuna RN Cough (Primary Dx) from Last 3 Months Allergies Active Allergy Reactions Criticality Noted Date [...] follow up on bleeding at annual exam. Social History Tobacco Use Types Packs/Day Years [...] 12/09/2024 7:07 AM EDT Plan of Treatment Not on file Procedures Procedure Name Priority Date/Time Associated Diagnosis [...] IMG CT ORDERABLES Final Result * (ABNORMAL) CBC with Auto Diff (12/09/2024 7:53 AM EDT) WBC 12.5(H) 3.9 - 10.0 K/ L 12/09/2024 8:05 AM EDT [facility] RBC 4.30 3.93 - 6.08 M/ L 12/09/2024 8:05 AM EDT [facility] Hemoglobin 12.1 11.2 - 15.7 GM/DL 12/09/2024 8:05 AM EDT [facility] Hematocrit 37.3 34.1 - 44.9 % 12/09/2024 8:05 AM EDT [facility] MCV 87 79 - 95 fL 12/09/2024 8:05 AM EDT [facility] MCH 28.1 25.6 - 32.2 pg 12/09/2024 8:05 AM EDT [facility] MCHC 32.4 32.2 - 36.5 GM/DL 12/09/2024 8:05 AM EDT [facility] RDW 15.3(H) 11.6 - 14.4 % 12/09/2024 8:05 AM EDT [facility] Platelets 285 163 - 369 K/CU MM 12/09/2024 8:05 AM EDT [facility] MPV 9.9 9.4 - 12.4 fL 12/09/2024 8:05 AM EDT [facility] % Neutros 70 34 - 71 % 12/09/2024 8:05 AM EDT [facility] % Lymphs 18(L) 19 - 53 % 12/09/2024 8:05 AM EDT [facility] % Monos 10 4 - 13 % 12/09/2024 8:05 AM EDT [facility] % Eos 1 1 - 7 % 12/09/2024 8:05 AM EDT [facility] % Baso 1 0 - 1 % 12/09/2024 8:05 AM EDT [facility] # Neutros 8.74(H) 1.56 - 6.13 K/ L 12/09/2024 8:05 AM EDT [facility] # Lymphs 2.27 1.18 - 3.74 K/ L 12/09/2024 8:05 AM EDT [facility] # Monos 1.29(H) 0.24 - 0.82 K/ L 12/09/2024 8:05 AM EDT [facility] # Eos 0.08 0.04 - 0.54 K/ L 12/09/2024 8:05 AM EDT [facility] # Baso 0.07 0.01 - 0.08 K/ L 12/09/2024 8:05 AM EDT [facility] Immature Granulocytes-Re lative 0.40 0.00 - 0.60 % 12/09/2024 8:05 AM EDT [facility] # IG 0.05 0.00 - 0.05 K/uL 12/09/2024 8:05 AM EDT [facility] Blood Venipuncture / Unknown 12/09/2024 7:53 AM EDT 12/09/2024 8:01 AM EDT Narrative [facility] - 12/09/2024 8:05 AM EDT When [...] noted Atypical Lymph flag noted us Ana Ji DO LAB BLOOD ORDERABLES Final Resul t [facility] [address] [phone] * (ABNORMAL) Comprehensive metabolic panel (12/09/2024 7:53 AM EDT) Sodium 135(L) 136 - 146 meq/L 12/09/2024 8:21 AM EDT [facility] Potassium 3.9 3.5 - 5.1 meq/L 12/09/2024 8:21 AM EDT [facility] Chloride 104 102 - 112 meq/L 12/09/2024 8:21 AM [facility] CO2 26 21 - 32 meq/L 12/09/2024 8:21 AM [facility] Calcium 8.7 8.5 - 10.1 mg/dL 12/09/2024 8:21 AM [facility] Glucose 94 74 - 106 mg/dL 12/09/2024 8:21 AM [facility] BUN 8 7 - 22 mg/dL 12/09/2024 8:21 AM [facility] Creatinine 0.82 0.55 - 1.02 mg/dL 12/09/2024 8:21 AM [facility] BUN/Creatinine 10 8 - 20 12/09/2024 8:21 AM [facility] Albumin 3.3(L) 3.4 - 5.0 g/dL 12/09/2024 8:21 AM [facility] Alkaline Phosphatase 88 27 - 136 U/L 12/09/2024 8:21 AM [facility] ALT 20 12 - 78 U/L 12/09/2024 8:21 AM [facility] AST 19 5 - 37 U/L 12/09/2024 8:21 AM [facility] Total Bilirubin 0.5 0.2 - 1.3 mg/dL 12/09/2024 8:21 AM [facility] Protein, Total 6.7 6.4 - 8.2 gm/dL 12/09/2024 8:21 AM [facility] Anion Gap 9 9 - 20 12/09/2024 8:21 AM [facility] A/G Ratio 1.0(L) 1.1 - 2.5 12/09/2024 8:21 AM [facility] Globulin 3.4 1.5 - 4.5 g/dL 12/09/2024 8:21 AM [facility] Osmolality Calc 268.2 mOsm/kg 8:21 AM [facility] eGFR (mL/min/1.73m2) >60 >=60 mL/min/1.7 3m2 12/09/2024 8:21 AM [facility] Comment:ESTIMATED GFR IS NOT ACCURATE CREATININE CLEARANCE IN PREDICTING GLOMERULAR FILTRATION RATE. ESTIMATED GFR IS NOT APPLICABLE FOR DIALYSIS PATIENTS. Blood Venipuncture / Unknown 12/09/2024 7:53 AM EDT 12/09/2024 8:01 AM EDT Ana Ji DO LAB BLOOD ORDERABLES Final Resul t [facility] [address] [phone] * XR ankle 3 views left (12/09/2024 [...] the next mammogram. At our facility, a [place] marker is positioned over a visible skin [...] the next mammogram. At our facility, a [place] marker is positioned over a visible skin lesion and a linear marker is used to indicate a scar. A triangular marker is placed on a self reported palpable finding. us Heike Perdomo MD IMG MAMMOGRAPHY ORDERABLES Fin al Result * Pap Smear, Thin Prep (05/01/2020 12:00 AM EST) Vaginal/Cervical/ Endocervical OTHER / Unknown Sherry Mendoza DO PATHOLOGY/CYTOLOGY ORDERABLES Fi nal Result [facility] MA[facility] LAB [address] [place] [address] from Last 3 Months or Most Recently Relevant to Health Maintenance Insurance [facility] EMP Care Teams Cream Dipper Relationship Specialty Start Date End Date Gisel Roman APRN [address] [place] [address] PCP - General Behavioral Health 06/09/24
--- OUTSIDE RECORDS SUMMARY | 2024-12-12 14:06 | XMS_ITS | Encounter Summary ---
Author Organization [employer] Address [address] [place] [address] Care Team Providers Care Vacuum Truck Driver Name Role Phone Gisel Roman APRN Primary Care Provider [phone] Encounter Details Date Type Department Care Team ([facility] Contact Info) Description 12/07/2024 Orders Only [facility] WET SANDER - [place] [address] [facility] [address] [place] [address] Alissa Osuna RN Cough (Primary Dx) Social History Tobacco Use Types Packs/Day Years [...] on file documented as of this encounter Progress Notes * Alissa Osuna RN - 12/07/2024 11:58 AM EDT Ordered per Dr. Mendoza documented in this encounter Plan of Treatment Not on file documented as of this encounter Visit Diagnoses Diagnosis Cough- Primary documented in this encounter Care Teams Vacuum Truck Driver Relationship Specialty Start Date End Date Gisel Roman APRN [address] [place] [address] PCP - General Behavioral Health 06/09/24 documented as of this encounter
--- OUTSIDE RECORDS SUMMARY | 2024-12-12 14:06 | XMS_ITS | Encounter Summary ---
Author Organization [employer] Address [address] [place] [address] Care Team Providers Care Supervisor Lending Activities Name Role Phone Gisel Roman APRN Primary Care Provider [phone] Encounter Details Date Type Department Care Team (Latest Contact Info) Description 12/09/2024 Travel Social History Tobacco Use Types Packs/Day Years [...] on file documented as of this encounter Plan of Treatment Not on file documented as of this encounter Visit Diagnoses Not on filedocumented in this encounter Care Teams Supervisor Lending Activities Relationship Specialty Start Date End Date Gisel Roman APRN [address] [place] [address] PCP - General Behavioral Health 06/09/24 documented as of this encounter
[2024-12-12 14:14] LABS: EBV Ab VCA, IgG >600.0 U/mL (0.0-17.9); EBV Ab VCA, IgM <36.0 U/mL (0.0-35.9)
== END 2024-12-11 23:59 | disposition home or self-care (01) ==
LOC: LAB.DROPOF 12-12 14:02
PROVIDERS: PCP Nurse Practitioner Family; Visit Provider Nurse Practitioner Family
DX: E55.9 Vitamin D deficiency, unspecified (principal); M79.10 Myalgia, unspecified site; D50.9 Iron deficiency anemia, unspecified; G62.9 Polyneuropathy, unspecified; R25.1 Tremor, unspecified; R63.5 Abnormal weight gain; R79.89 Other specified abnormal findings of blood chemistry; R05.1 Acute cough
CPT/HCPCS: 80053; 82306; 82607; 82728; 83036; 83540; 83550; 83735; 83880; 84443; 85025; 86038; 86140; 86664; 86665; 87070; 87077; 87186; 87205

== ENCOUNTER 2024-12-18 14:57 | Outpatient (CLI) | payer BC, SELFPAY ==
--- OUTSIDE RECORDS SUMMARY | 2024-12-09 07:03 | XMS_ITS | Encounter Summary ---
Author Organization [employer] ([place], [place], [place], [place]) Address [address] [place] [address] Care Team Providers Care Application Processor Name Role Phone Gisel Roman APRN Primary Care Provider [phone] Reason for Visit * Reason Comments Leg Pain Pt presents to ED wi th L leg pain onset this AM @ 6am. Pt reports having cut herself shaving half a week ago to posterior leg and now has pain from heel to posterior knee. Pt reports R groin pain. Encounter Details Date Type Department Care Team ([facility] Contact Info) Description 12/09/2024 7:03 AM EDT - 12/09/2024 10:57 AM EDT Emergency [facility] Emergency Department [address] [place] [address] Ana Ji DO [address] [place] [address] Left leg pain (Primary Dx); Cellulitis of [...] sent through Care Everywhere. * Cellulitis Adult Tanh-xd-Aphl (Guamanian) documented in this encounter Medications at Time of Discharge busPIRone (BUSPAR) 10 MG tablet Take 2 tablets (20 mg total) by mouth 2 (two) times daily. 05/14/2024 clindamycin (CLEOCIN) 300 MG capsule Take 2 capsules (600 mg total) by mouth 3 (three) times daily for 10 days. 60 capsule 12/09/2024 dextroamphetamin e-amphetamine (ADDERALL) 10 mg tab tablet [...] to 7 days. 21 capsule 12/07/2024 5 HYDROcodone-acet aminophen (NORCO) 5-325 mg per [...] [SP] ED Course User Index [SP] Ana DO Garrison Procedures Medical Decision Making Differential diagnosis: Cellulitis, [...] 4 tablets Contact information for follow-up Gisel Roman APRN Specialty: Behavioral Health Relationship: PCP - General [address] [place], [place] [id number] Next Steps: Schedule an appointment as soon [...] venous thrombosis of the left lower extremity. us Ana Ji DO CV VASCULAR ORDERABLES Final [...] 9 9 - 20 12/09/2024 8:21 AM T [facility] A/G Ratio [...] t [facility] [address] [phone] * (ABNORMAL) CBC with Auto Diff (12/09/2024 [...] 32.2 - 36.5 GM/DL 12/09/2024 8:05 AM EDT [facility] RDW 15.3(H) 11.6 - 14.4 % 12/09/2024 8:05 AM EDT [facility] Platelets 285 163 - 369 K/CU MM 12/09/2024 8:05 AM [facility] MPV 9.9 9.4 - 12.4 fL 12/09/2024 8:05 AM [facility] % Neutros 70 34 - 71 % 12/09/2024 8:05 AM T [facility] % Lymphs 18(L) 19 - 53 % 12/09/2024 8:05 AM EDT [facility] % Monos 10 4 - 13 % 12/[facility] Eos 1 1 - 7 % 12/09/2024 8:05 AM [facility] % Baso 1 0 - 1 % 12/09/2024 8:05 AM [facility] # Neutros 8.74(H) 1.56 - 6.13 K/ L 12/09/2024 8:05 AM EDT [facility] # Lymphs 2.27 1.18 - 3.74 K/ L 12/09/2024 8:05 AM T [facility] # Monos 1.29(H) 0.24 - 0.82 K/ L 12/09/2024 8:05 AM [facility] # Eos 0.08 0.04 - 0.54 K/ L 12/09/2024 8:05 AM [facility] # Baso 0.07 0.01 - 0.08 K/ L 12/09/2024 8:05 AM EDT [facility] Immature Granulocytes-Re lative 0.40 0.00 - 0.60 % 12/09/2024 8:05 AM [facility] # IG 0.05 0.00 - 0.05 K/uL 12/09/2024 8:05 AM [facility] Blood Venipuncture / Unknown 12/09/2024 7:53 AM EDT 12/09/2024 8:01 AM EDT [facility] - 12/09/2024 8:05 AM EDT When [...] Blast? Flag noted Atypical Lymph flag noted us Ana Garrison DO LAB BLOOD ORDERABLES Final Resul t [facility] [address] [phone] * XR ankle 3 views left (12/09/2024 [...] Zohaib Martinez. Transcribed by Delfina Mann PA-C. Ana Ji DO IMG DIAGNOSTIC IMAGING ORDERABLE [...] dose 0937 (Given - Provid er: Arthur Hubbard RN) documented in this encounter Care Teams Application Processor Relationship Specialty Start Date End Date Gisel Roman, BODY DESIGN CHECKER [address] [place] [address] PCP - General Behavioral Health 06/09/24 documented as of this encounter
--- OUTSIDE RECORDS SUMMARY | 2024-12-18 14:59 | XMS_ITS | Referral Summary ---
Author Organization [employer] ([place], [place], [place], [place]) Address [address] [place] [address] Care Team Providers Care Applied Psychology Teacher Name Role Phone Gisel Roman MAYI Primary Care Provider [phone] Encounters Date Type Department Care Team Description 12/09/2024 Travel 12/09/2024 7:03 AM EDT - 12/09/2024 10:57 AM EDT Emergency [facility] Emergency Department [address] [place] [address] Ana Ji DO Left leg pain (Primary Dx); Cellulitis of left lower extremity Discharge Disposition: Home or Self Care 12/07/2024 Orders Only [facility] WASTE SPECIALIST - [place] [address] [facility] [address] [place] [address] Alissa Osuna RN Cough (Primary [...] mouth 2 (two) times daily. 4 Active clindamycin (CLEOCIN) 300 MG capsule Take 2 capsules (600 mg total) by mouth 3 (three) times daily for 10 days. 60 capsule 5 12/20/19 25 Active benzonatate (TESSALON) 200 MG capsuleIndicati ons:Cough Take 1 capsule (200 mg total) by mouth 3 (three) times daily as needed for cough for up to 7 days. 21 capsule 5 12/15/19 25 HYDROcodone-gomez taminophen (NORCO) 5-325 mg per tablet Take 1 tablet by mouth every 6 (six) hours as needed for pain for up to 3 days. Max Daily Amount: 4 tablets 10 tablet 5 12/13/19 25 Active Problems Problem Noted Date Diagnosed Date [...] of the left lower extremity. Ana Ji CV VASCULAR ORDERABLES Final Res ult * [...] and dictated by Zohaib Martinez MD Ana Ji DO IMG CT ORDERABLES Final Result * (ABNORMAL) CBC with Auto Diff (12/09/2024 7:53 AM EDT) WBC 12.5(H) 3.9 - 10.0 K/ L 12/09/2024 8:05 AM EDT [facility] RBC 4.30 3.93 - 6.08 M/ L 12/09/2024 8:05 AM EDT [facility] Hemoglobin 12.1 11.2 - 15.7 GM/DL 12/09/2024 8:05 AM EDT [facility] Hematocrit 37.3 34.1 - 44.9 % 12/09/2024 8:05 AM EDT [facility] MCV 87 79 - 95 fL 12/09/2024 8:05 AM EDT [facility] MCH 28.1 25.6 - 32.2 pg 12/09/2024 8:05 AM EDT [facility] MCHC 32.4 32.2 - 36.5 GM/DL 12/09/2024 8:05 AM EDT [facility] RDW 15.3(H) 11.6 - 14.4 % 12/09/2024 8:05 AM EDT [facility] Platelets 285 163 - 369 K/CU MM 12/09/2024 8:05 AM EDT [facility] MPV 9.9 9.4 - 12.4 fL 12/09/2024 8:05 AM EDT [facility] % Neutros 70 34 - 71 % 12/09/2024 8:05 AM EDT [facility] % Lymphs 18(L) 19 - 53 % 12/09/2024 8:05 AM EDT [facility] % Monos 10 4 - 13 % 12/09/2024 8:05 AM EDT [facility] % Eos 1 1 - 7 % 12/09/2024 8:05 AM EDT [facility] % Baso 1 0 - 1 % 12/09/2024 8:05 AM EDT [facility] # Neutros 8.74(H) 1.56 - 6.13 K/ L 12/09/2024 8:05 AM EDT [facility] # Lymphs 2.27 1.18 - 3.74 K/ L 12/09/2024 8:05 AM EDT [facility] # Monos 1.29(H) 0.24 - 0.82 K/ L 12/09/2024 8:05 AM EDT [facility] # Eos 0.08 0.04 - 0.54 K/ L 12/09/2024 8:05 AM EDT [facility] # Baso 0.07 0.01 - 0.08 K/ L 12/09/2024 8:05 AM EDT [facility] Immature Granulocytes-Re lative 0.40 0.00 - 0.60 % 12/09/2024 8:05 AM EDT [facility] # IG 0.05 0.00 - 0.05 K/uL 12/09/2024 8:05 AM EDT [facility] Blood Venipuncture / Unknown 12/09/2024 7:53 AM EDT 12/09/2024 8:01 AM EDT Narrative [facility] - 12/09/2024 8:05 AM EDT When [...] DO LAB BLOOD ORDERABLES Final Resul t [facility] [address] [phone] * (ABNORMAL) Comprehensive metabolic panel (12/09/2024 7:53 AM EDT) Sodium 135(L) 136 - 146 meq/L 12/09/2024 8:21 AM EDT [facility] Potassium 3.9 3.5 - 5.1 meq/L 12/09/2024 8:21 AM EDT [facility] Chloride 104 102 - 112 meq/L 12/09/2024 8:21 AM [facility] CO2 26 21 - 32 meq/L 12/09/2024 8:21 AM [facility] Calcium 8.7 8.5 - 10.1 mg/dL 12/09/2024 8:21 AM [facility] Glucose 94 74 - 106 mg/dL 12/09/2024 8:21 AM [facility] BUN 8 7 - 22 mg/dL 12/09/2024 8:21 AM [facility] Creatinine 0.82 0.55 - 1.02 mg/dL 12/09/2024 8:21 AM [facility] BUN/Creatinine 10 8 - 20 12/09/2024 8:21 AM [facility] Albumin 3.3(L) 3.4 - 5.0 g/dL 12/09/2024 8:21 AM [facility] Alkaline Phosphatase 88 27 - 136 U/L 12/09/2024 8:21 AM [facility] ALT 20 12 - 78 U/L 12/09/2024 8:21 AM [facility] AST 19 5 - 37 U/L 12/09/2024 8:21 AM [facility] Total Bilirubin 0.5 0.2 - 1.3 mg/dL 12/09/2024 8:21 AM [facility] Protein, Total 6.7 6.4 - 8.2 gm/dL 12/09/2024 8:21 AM [facility] Anion Gap 9 9 - 20 12/09/2024 8:21 AM [facility] A/G Ratio 1.0(L) 1.1 - 2.5 12/09/2024 8:21 AM [facility] Globulin 3.4 1.5 - 4.5 g/dL 12/09/2024 8:21 AM [facility] Osmolality Calc 268.2 mOsm/kg 8:21 AM [facility] eGFR (mL/min/1.73m2) >60 >=60 mL/min/1.7 3m2 12/09/2024 8:21 AM EDT [facility] Comment:ESTIMATED GFR IS NOT ACCURATE CREATININE CLEARANCE IN PREDICTING GLOMERULAR FILTRATION RATE. ESTIMATED GFR IS NOT APPLICABLE FOR DIALYSIS PATIENTS. Blood Venipuncture / Unknown 12/09/2024 7:53 AM EDT 12/09/2024 8:01 AM EDT Ana Ji DO LAB BLOOD ORDERABLES Final Resul t [facility] [address] [phone] * XR ankle 3 views left (12/09/2024 [...] the next mammogram. At our facility, a [place] marker is positioned over a visible skin [...] the next mammogram. At our facility, a [place] marker is positioned over a visible skin lesion and a linear marker is used to indicate a scar. A triangular marker is placed on a self reported palpable finding. us Heike Perdomo MD IMG MAMMOGRAPHY ORDERABLES Fin al Result * Pap Smear, Thin Prep (05/01/2020 12:00 AM EST) Vaginal/Cervical/ Endocervical OTHER / Unknown us Sherry Mendoza DO PATHOLOGY/CYTOLOGY ORDERABLES Fi nal Result [facility] MAIN LAB [address] [place] [address] from Last 3 Months or Most Recently Relevant to Health Maintenance Insurance [facility] EMP Care Teams Applied Psychology Teacher Relationship Specialty Start Date End Date Gisel Roman APRN [address] [place] [address] PCP - General Behavioral Health 06/09/24
--- OUTSIDE RECORDS SUMMARY | 2024-12-18 14:59 | XMS_ITS | Encounter Summary ---
Author Organization [employer] ([place], [place], [place], [place]) Address [address] [place] [address] Care Team Providers Care Senior Construction Estimator Name Role Phone Gisel Roman APRN Primary Care Provider [phone] Encounter Details Date Type Department Care Team [...] on filedocumented in this encounter Care Teams Senior Construction Estimator Relationship Specialty Start Date End Date Gisel Roman APRN [address] [place] [address] PCP - General Behavioral Health 06/09/24 documented as of this encounter
--- OUTSIDE RECORDS SUMMARY | 2024-12-18 14:59 | XMS_ITS | Encounter Summary ---
Author Organization [employer] ([place], [place], [place], [place]) Address [address] [place] [address] Care Team Providers Care Automation Application Engineer Name Role Phone Gisel Roman APRN Primary Care Provider [phone] Encounter Details Date Type Department Care Team ([facility] Contact Info) Description 12/07/2024 Orders Only [facility] PNEUMATIC TUBE FITTER - [place] [address] [facility] [address] [place] [address] Alissa Osuna RN Cough (Primary [...] Primary documented in this encounter Care Teams Automation Application Engineer Relationship Specialty Start Date End Date Gisel Roman APRN [address] [place] [address] PCP - General Behavioral Health 06/09/24 documented as of this encounter
--- OUTSIDE RECORDS SUMMARY | 2024-12-18 14:59 | XMS_ITS | Clinical Summary ---
Author Organization [employer] ([place], [place], [place], [place]) Address [address] [place] [address] Care Team Providers Care Income Tax Auditor Name Role Phone AbelGisel MAYI Primary Care Provider [phone] Allergies Active Allergy Reactions Criticality Noted Date [...] - 12/09/2024 10:57 AM EDT Emergency [facility] Emergency Department [address] [place] [address] Ana Ji DO Left leg pain (Primary Dx); Cellulitis of left lower extremity Discharge Disposition: Home or Self Care 12/09/2024 Travel 12/07/2024 Orders Only [facility] KNIFER UP - [place] [address] [facility] [address] [place] [address] Alissa Osuna RN Cough (Primary Dx) from [...] 07/23/2020 Pap Smear 05/01/2023 05/01/2020 COVID-19 VACCINE (3 - season) 2024, 06/18/2020 Influenza Vaccine (Season Ended) [...] thrombosis of the left lower extremity. Ana Rubinjaclyn HUSSEIN CV VASCULAR ORDERABLES Final Res ult * [...] dictated by Zohaib Martinez MD us Ana Garrison DO IMG CT ORDERABLES Final Result * (ABNORMAL) CBC with Auto Diff (12/09/2024 7:53 AM EDT) WBC 12.5(H) 3.9 - 10.0 K/ L 12/09/2024 8:05 AM EDT [facility] RBC 4.30 3.93 - 6.08 M/ L 12/09/2024 8:05 AM EDT [facility] Hemoglobin 12.1 11.2 - 15.7 GM/DL 12/09/2024 8:05 AM EDT [facility] Hematocrit 37.3 34.1 - 44.9 % 12/09/2024 8:05 AM EDT [facility] MCV 87 79 - 95 fL 12/09/2024 8:05 AM EDT [facility] MCH 28.1 25.6 - 32.2 pg 12/09/2024 8:05 AM EDT [facility] MCHC 32.4 32.2 - 36.5 GM/DL 12/09/2024 8:05 AM EDT [facility] RDW 15.3(H) 11.6 - 14.4 % 12/09/2024 8:05 AM EDT [facility] Platelets 285 163 - 369 K/CU MM 12/09/2024 8:05 AM T [facility] MPV 9.9 9.4 - 12.4 fL 12/09/2024 8:05 AM EDT [facility] % Neutros 70 34 - 71 % 12/09/2024 8:05 AM EDT [facility] % Lymphs 18(L) 19 - 53 % 12/09/2024 8:05 AM EDT [facility] % Monos 10 4 - 13 % 12/09/2024 8:05 AM EDT [facility] % Eos 1 1 - 7 % 12/09/2024 8:05 AM EDT [facility] % Baso 1 0 - 1 % 12/09/2024 8:05 AM EDT [facility] # Neutros 8.74(H) 1.56 - 6.13 K/ L 12/09/2024 8:05 AM EDT [facility] # Lymphs 2.27 1.18 - 3.74 K/ L 12/09/2024 8:05 AM EDT [facility] # Monos 1.29(H) 0.24 - 0.82 K/ L 12/09/2024 8:05 AM EDT [facility] # Eos 0.08 0.04 - 0.54 K/ L 12/09/2024 8:05 AM EDT [facility] # Baso 0.07 0.01 - 0.08 K/ L 12/09/2024 8:05 AM EDT [facility] Immature Granulocytes-Re lative 0.40 0.00 - 0.60 % 12/09/2024 8:05 AM EDT [facility] # IG 0.05 0.00 - 0.05 K/uL 12/09/2024 8:05 AM [facility] Blood Venipuncture / Unknown 12/09/2024 7:53 AM EDT 12/09/2024 8:01 AM EDT Narrative [facility] - 12/09/2024 8:05 AM EDT [...] DO LAB BLOOD ORDERABLES Final Resul t [facility] [address] [phone] * (ABNORMAL) Comprehensive metabolic panel (12/09/2024 7:53 AM EDT) Sodium 135(L) 136 - 146 meq/L 12/09/2024 8:21 AM EDT [facility] Potassium 3.9 3.5 - 5.1 meq/L 12/09/2024 8:21 AM EDT [facility] Chloride 104 102 - 112 meq/L 12/09/2024 8:21 AM EDT [facility] CO2 26 21 - 32 meq/L 12/09/2024 8:21 AM EDT [facility] Calcium 8.7 8.5 - 10.1 mg/dL 12/09/2024 8:21 AM EDT [facility] Glucose 94 74 - 106 mg/dL 12/09/2024 8:21 AM EDT [facility] BUN 8 7 - 22 mg/dL 12/09/2024 8:21 AM EDT [facility] Creatinine 0.82 0.55 - 1.02 mg/dL 12/09/2024 8:21 AM EDT [facility] BUN/Creatinine 10 8 - 20 12/09/2024 8:21 AM EDT [facility] Albumin 3.3(L) 3.4 - 5.0 g/dL 12/09/2024 8:21 AM EDT [facility] Alkaline Phosphatase 88 27 - 136 U/L 12/09/2024 8:21 AM EDT [facility] ALT 20 12 - 78 U/L 12/09/2024 8:21 AM EDT [facility] AST 19 5 - 37 U/L 12/09/2024 8:21 AM EDT [facility] Total Bilirubin 0.5 0.2 - 1.3 mg/dL 12/09/2024 8:21 AM EDT [facility] Protein, Total 6.7 6.4 - 8.2 gm/dL 12/09/2024 8:21 AM EDT [facility] Anion Gap 9 9 - 20 12/09/2024 8:21 AM EDT [facility] A/G Ratio 1.0(L) 1.1 - 2.5 12/09/2024 8:21 AM EDT [facility] Globulin 3.4 1.5 - 4.5 g/dL 12/09/2024 8:21 AM EDT [facility] Osmolality Calc 268.2 mOsm/kg 8:21 AM EDT [facility] eGFR (mL/min/1.73m2) >60 >=60 mL/min/1.7 3m2 12/09/2024 8:21 AM EDT [facility] Comment:ESTIMATED GFR IS NOT ACCURATE CREATININE CLEARANCE IN PREDICTING GLOMERULAR FILTRATION RATE. ESTIMATED GFR IS NOT APPLICABLE FOR DIALYSIS PATIENTS. Blood Venipuncture / Unknown 12/09/2024 7:53 AM EDT 12/09/2024 8:01 AM EDT us Ana Ji DO LAB BLOOD ORDERABLES Final Resul t [facility] [address] [phone] * XR ankle 3 views left (12/09/2024 [...] Images reviewed, interpreted, and dictated by Dr. Zohiab Martinez. Transcribed by Delfina Mann PA-C. Ana Ji DO IM DIAGNOSTIC IMAGING ORDERABLE S Final Result * [...] the next mammogram. At our facility, a [place] marker is positioned over a visible skin [...] the next mammogram. At our facility, a [place] marker is positioned over a visible skin lesion and a linear marker is used to indicate a scar. A triangular marker is placed on a self reported palpable finding. Heike Perdomo MD [facility] MAMMOGRAPHY ORDERABLES [facility] Result * Pap Smear, Thin Prep (05/01/2020 12:00 AM EST) Vaginal/Cervical/ Endocervical OTHER / Unknown Sherry Mendoza DO PATHOLOGY/CYTOLOGY ORDERABLES nal Result [facility] [address] [place] [id number] from Last 3 Months or Most Recently Relevant to Health Maintenance Insurance [facility] EMP Care Teams Income Tax Auditor Relationship Specialty Start Date End Date Gisel Roman APRN [id number] [place] [address] PCP - General Behavioral Health 06/09/24
--- NOTE | 2024-12-18 15:15 | MR_ITS ---
PROCEDURE INFORMATION: Exam: MR Head Without and With Contrast Exam date and time: 12/18/2024 3:07 PM Age: 54 years old Clinical indication: Other: Tremors; Additional info: Tremor TECHNIQUE: Imaging protocol: Magnetic resonance imaging of the head without and with contrast. Contrast material: PROHANCE; Contrast volume: 25 ml; Contrast route: IV; COMPARISON: No relevant prior studies available. FINDINGS: Brain: No restricted diffusion. No hemorrhage. Diffuse brain parenchymal volume loss. Few punctate foci of T2/FLAIR hyperintense signal within the bilateral frontal lobe subcortical white matter, not an unexpected finding given the patient's age. No edema. Cerebral ventricles: Normal. No ventriculomegaly. Bones: Unremarkable. Paranasal sinuses: Normal as visualized. No acute sinusitis. Mastoid air cells: Trace mastoid effusions. Orbital cavities: Unremarkable. Soft tissues: Unremarkable. 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 IMPRESSION: No acute findings.
[2024-12-18] MEDS: SODIUM CHLORIDE 0.9% 10ML SYR (RAD ONLY) 10 ML IV (16:03)
[2024-12-18] MEDS: GADOTERIDOL INJ 20ML SYRINGE 20 ML IV (16:03)
[2024-12-18] MEDS: GADOTERIDOL INJ 10ML SYRINGE 5 ML IV (16:03)
== END 2024-12-18 23:59 | disposition home or self-care (01) ==
LOC: RAD 14:57
PROVIDERS: PCP Nurse Practitioner Family; Visit Provider Nurse Practitioner Family
DX: R25.1 Tremor, unspecified (principal); R53.1 Weakness
CPT/HCPCS: 70553; A9576

== ENCOUNTER 2024-12-25 07:59 | Outpatient (CLI) | payer BC, SELFPAY ==
--- OUTSIDE RECORDS SUMMARY | 2024-12-09 07:03 | XMS_ITS | Encounter Summary ---
Author Organization [employer] ([place], [place], [place], [place]) Address [address] [place] [address] Care Team Providers Care Special Effects Person Name Role Phone Gisel Roman APRN Primary Care Provider + [phone] Reason for Visit * Reason Comments Leg Pain Pt presents to ED wi th L leg pain onset this AM @ 6am. Pt reports having cut herself shaving half a week ago to posterior leg and now has pain from heel to posterior knee. Pt reports R groin pain. Encounter Details Date Type Department Care Team ([facility] Contact Info) Description 12/09/2024 7:03 AM EDT - 12/09/2024 10:57 AM EDT Emergency [facility] Emergency Department [address] [place] [address] Ana Ji, DO [address] [place] [address] Left leg pain (Primary Dx); Cellulitis of left lower extremity Discharge Disposition: Home or Self Care Social History Tobacco Use Types Packs/Day Years Used Date Smoking Tobacco: Never Smokeless Tobacco: Current Comments:vapes Alcohol Use Standard Drinks/Week Comments Yes 0 (1 standard drink = 0.6 oz pur e alcohol) Occasional Comments Unknown Sex and Gender Information Value Date Recorded Sex Assigned at Not on file Legal Sex Female 5:52 PM CDT Gender Identity Not on file Sexual Orientation Not on file documented as of this encounter Last Filed Vital Signs Vital Sign Reading Time Taken Comments Blood Pressure 184/86 12/09/2024 7:07 AM EDT Pulse 80 12/09/2024 7:07 AM EDT Temperature 36.4 C (97.5 F) 12/09/2024 7:07 AM EDT Respiratory Rate 16 12/09/2024 7:07 AM EDT Oxygen Saturation 100% 12/09/2024 7:07 AM EDT Inhaled Oxygen Concentration - - Weight 117.9 kg (260 lb) 12/09/2024 7:07 AM EDT Height 160 cm (5' 3 ) 12/09/2024 7:07 AM EDT Body Mass Index 46.06 12/09/2024 7:07 AM EDT documented in this encounter Discharge Instructions * Attachments The following attachments cannot be sent through Care Everywhere. * Cellulitis Adult Qpar-iy-Zssq ([place] Citizen) documented in this encounter Medications at Time of Discharge busPIRone (BUSPAR) 10 MG tablet Take 2 tablets (20 mg total) by mouth 2 (two) times daily. 05/14/2024 dextroamphetamin e-amphetamine (ADDERALL) 10 mg tab tablet 10 MG orally twice a day; administer doses at least 4-6 hours apart 06/01/2024 venlafaxine XR (EFFEXOR-XR) 150 MG 24 hr capsule Take 1 capsule (150 mg total) by mouth daily. 05/03/2024 venlafaxine XR (EFFEXOR-XR) 75 MG 24 hr capsule Take by mouth. 05/03/2024 benzonatate (TESSALON) 200 MG capsuleIndicatio ns:Cough Take 1 capsule (200 mg total) by mouth 3 (three) times daily as needed for cough for up to 7 days. 21 capsule 12/07/2024 5 clindamycin (CLEOCIN) 300 MG capsule Take 2 capsules (600 mg total) by mouth 3 (three) times daily for 10 days. 60 capsule 12/09/2024 5 HYDROcodone-acet aminophen (NORCO) 5-325 mg per tablet Take 1 tablet by mouth every 6 (six) hours as needed for pain for up to 3 days. Max Daily Amount: 4 tablets 10 tablet 12/09/2024 5 documented as of this encounter ED Notes * Ana Ji DO - 12/09/2024 7:19 AM EDT Subjective Chief Complaint: Leg Pain (Pt presents to ED with L leg pain onset this AM @ 6am. Pt reports havingcut herself shaving half a week ago to posterior leg and now has pain from heel to posterior knee. Pt reports R groin pain.) 54-year-old female here with left lower leg pain. 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 Patient states that she cut her leg in the right lower leg shaving last week. States that through the night while she was working the pain got excruciatingly worse. Which prior to the emergency department this morning. She has not taken anything for this pain through the night. Not even Tylenol or ibuprofen. She has not used ice. She has had no surgeries on this foot or ankle in the past. No falls or trauma. The pain is from the right ankle up to behind the knee. There is no knee pain. History provided by: Patient Leg Pain Patient History Past Medical History: Diagnosis Date ADHD Anxiety and depression Hypertension Past Surgical History: Procedure Laterality Date LAPAROSCOPY,APPENDECTOMY N/A SLEEVE GASTROPLASTY N/A TONSILLECTOMY & ADENOIDECTOMY Bilateral Family History Problem Relation Name Age of Onset Breast cancer Maternal Grandmother Social History Tobacco Use Smoking status: Never Smokeless tobacco: Current Tobacco comments: vapes Substance Use Topics Alcohol use: Yes Comment: Occasional I reviewed the HPI, ROS and PFSH documentation recorded by others in the medical record and supplemented my note as needed. Review of Systems Review of Systems Physical Exam ED Triage Vitals [12/09/24 0707] Encounter Vitals Group BP (!) 184/86 Systolic BP Percentile Diastolic BP Percentile Pulse 80 Resp 16 Temp 97.5 ??F (36.4 ??C) Temp src SpO2 100 % Weight 117.9 kg (260 lb) Height 1.6 m (5' 3 ) Head Circumference Peak Flow Pain Score Pain Loc Pain Education Exclude from Growth Chart Physical Exam Vitals and nursing note reviewed. Constitutional: Appearance: Normal appearance. She is obese. She is not ill-appearing. HENT: Head: Normocephalic. Eyes: Extraocular Movements: Extraocular movements intact. Cardiovascular: Rate and Rhythm: Normal rate and regular rhythm. Heart sounds: No murmur heard. Pulmonary: Effort: Pulmonary effort is normal. No respiratory distress. Breath sounds: Normal breath sounds. No wheezing. Musculoskeletal: General: Tenderness present. Cervical back: Normal range of motion and neck supple. Left lower leg: Edema present. Comments: There is a superficial cut on the left lower ankle in the Achilles area. There is some mild edema there is no purulent drainage. There is exquisite tenderness all around this area. There istenderness up into the calf. There is no tenderness about the knee. DP pulse are palpable. Distal sensation is intact Skin: Findings: No rash. Neurological: Mental Status: She is alert and oriented to person, place, and time. Neurological Exam Mental Status Alert. Oriented to person, place, and time. Cranial Nerves CN III, IV, : Extraocular movements intact bilaterally. Ortho Exam ED Course & MDM Medications clindamycin (CLEOCIN) IVPB 600 mg in 0.9 % sodium chloride 50 mL (premix) (600 mg intravenous IVPB Started 12/09/24 1020) ketorolac (TORADOL) injection 30 mg (30 mg intravenous Given 12/09/24 0750) morphine injection 4 mg (4 mg intravenous Given 12/09/24 0757) morphine injection 4 mg (4 mg intravenous Given 12/09/24 0937) Results for orders placed or performed during the hospital encounter of 12/09/24 CBC with Auto Diff Result Value Ref Range WBC 12.5 (H) 3.9 - 10.0 K/??L RBC 4.30 3.93 - 6.08 M/??L Hemoglobin 12.1 11.2 - 15.7 GM/DL Hematocrit 37.3 34.1 - 44.9 % MCV 87 79 - 95 fL MCH 28.1 25.6 - 32.2 pg MCHC 32.4 32.2 - 36.5 GM/DL RDW 15.3 (H) 11.6 - 14.4 % Platelets 285 163 - 369 K/CU MM MPV 9.9 9.4 - 12.4 fL % Neutros 70 34 - 71 % % Lymphs 18 (L) 19 - 53 % % Monos 10 4 - 13 % % Eos 1 1 - 7 % % Baso 1 0 - 1 % # Neutros 8.74 (H) 1.56 - 6.13 K/??L # Lymphs 2.27 1.18 - 3.74 K/??L # Monos 1.29 (H) 0.24 - 0.82 K/??L # Eos 0.08 0.04 - 0.54 K/??L # Baso 0.07 0.01 - 0.08 K/??L Immature Granulocytes-Relative 0.40 0.00 - 0.60 % # IG 0.05 0.00 - 0.05 K/uL Comprehensive metabolic panel Result Value Ref Range Sodium 135 (L) 136 - 146 meq/L Potassium 3.9 3.5 - 5.1 meq/L Chloride 104 102 - 112 meq/L CO2 26 21 - 32 meq/L Calcium 8.7 8.5 - 10.1 mg/dL Glucose 94 74 - 106 mg/dL BUN 8 7 - 22 mg/dL Creatinine 0.82 0.55 - 1.02 mg/dL BUN/Creatinine 10 8 - 20 Albumin 3.3 (L) 3.4 - 5.0 g/dL Alkaline Phosphatase 88 27 - 136 U/L ALT 20 12 - 78 U/L AST 19 5 - 37 U/L Total Bilirubin 0.5 0.2 - 1.3 mg/dL Protein, Total 6.7 6.4 - 8.2 gm/dL Anion Gap 9 9 - 20 A/G Ratio 1.0 (L) 1.1 - 2.5 Globulin 3.4 1.5 - 4.5 g/dL Osmolality Calc 268.2 mOsm/kg eGFR (mL/min/1.73m2) >60 >=60 mL/min/1.73m2 US doppler venous leg left Final Result No evidence of deep venous thrombosis of the left lower extremity. CT lower extremity without IV contrast left Final Result Subcutaneous edema which may be seen with cellulitis. No abscess, foreign body or gas in the soft tissues. This study was performed using dose reduction techniques to achieve radiation exposure as low as reasonably achievable (ALARA) Images reviewed, interpreted, and dictated by Zohaib Martinez MD XR ankle 3 views left Final Result Soft tissue edema without acute fracture. Images reviewed, interpreted, and dictated by Dr. Zohaib Martinez. Transcribed by Delfina Mann PA-C. ED Course as of 12/09/24 1046 Sun Dec 09, 2024 0751 Left ankle x-ray: Images interpreted by me no fracture seen [SP] 0754 Patient has not decided that she will get a ride and wants something stronger for pain. Morphine 4 mg has been ordered. I will now order a CT scan of the lower extremity just to evaluate for possible Achilles injury [SP] 0916 I just checked on the patient and she is feeling some better after the morphine however she isrequesting something else. Patient will be given another dose of morphine at this time. We are still awaiting CT scan results and ultrasound at this time [SP] 1038 CT scan has been read by radiology showing evidence of some cellulitis however no abscess or gas in the tissues. Ultrasound of the lower leg is negative for DVT [SP] 1044 I explained the findings to the patient. Patient will be wrapped in an Daniel wrap and given crutches for that she has the off of her leg. At this point she will be treated as a cellulitis. Patientreceived clindamycin here she will be placed on clindamycin and pain medicine at home. She will be given several days off of work to see if this can heal better. [SP] ED Course User Index [SP] Ana JiDO Procedures Medical Decision Making Differential diagnosis: Cellulitis, DVT, Achilles tendon injury, ligamentous injury, muscle strain Patient has not taken anything here for pain and she states that she is driving and does not want anything strong. She will be given 30 mg of Toradol. Baseline labs will be obtained. Patient will have an ultrasound for DVT and an x-ray. See ED Course above for further information. Amount and/or Complexity of Data Reviewed Labs: ordered. Radiology: ordered. Risk Prescription drug management. Assessment & Plan Clinical Impression Diagnosis Comment Added By Time Added Left leg pain Ana JiDO 12/09/2024 10:44 AM Cellulitis of left lower extremity Ana JiDO 12/09/2024 10:44 AM Disposition Discharge [1] - 12/09/2024 10:44 AM New Prescriptions CLINDAMYCIN (CLEOCIN) 300 MG CAPSULE Take 2 capsules (600 mg total) by mouth 3 (three) times daily for 10 days. HYDROCODONE-ACETAMINOPHEN (NORCO) 5-325 MG PER TABLET Take 1 tablet by mouth every 6 (six) hours asneeded for pain for up to 3 days. Max Daily Amount: 4 tablets Contact information for follow-up Gisel Abel, BULLET SWAGING MACHINE OPERATOR Specialty: Behavioral Health Relationship: PCP - General Rosalia [place] [phone] Next Steps: Schedule an appointment as soon as possible for a visit Instructions: As needed documented in this encounter Plan of Treatment Not on file documented as of this encounter Procedures Procedure Name Priority Date/Time Associated Diagnosis Comments US DOPPLER VENOUS LEG LEFT STAT 12/09/2024 10:[address] LOWER EXTREMITY WITHOUT IV CONTRAST LEFT STAT 12/09/2024 8:36 AM EDT CBC W/ AUTO DIFF STAT 12/09/2024 7:53 AM EDT COMPREHENSIVE METABOLIC PANEL STAT 12/09/2024 7:53 AM EDT XR ANKLE 3 VIEWS LEFT STAT 12/09/2024 7:42 AM EDT documented in this encounter Results * US doppler venous leg left (12/09/2024 10:05 AM EDT) Anatomical Region Laterality Modality Lower Extremity Ultrasound 12/09/2024 10:3 4 AM EDT Impressions 12/09/2024 10:35 AM EDT No evidence of deep venous thrombosis of the left lower extremity. Narrative 12/09/2024 10:35 AM EDT LEFT LOWER EXTREMITY VENOUS DUPLEX HISTORY: Pain and swelling Multiple transverse and longitudinal scans were performed of the femoropopliteal deep venous system, with augmentation and compression maneuvers. Normal phasic flow was noted in the visualized deep venous system. No intraluminal increased echogenicity is noted to suggest thrombus. There is normal compression and augmentation of the venous structures. No abnormal venous collaterals are seen. Procedure Note Zohaib Martinez MD - 12/09/2024 LEFT LOWER EXTREMITY VENOUS DUPLEX HISTORY: Pain and swelling Multiple transverse and longitudinal scans were performed of the femoropopliteal deep venous system, with augmentation and compression maneuvers. Normal phasic flow was noted in the visualized deep venous system. No intraluminal increased echogenicity is noted to suggest thrombus. There is normal compression and augmentation of the venous structures. No abnormal venous collaterals are seen. IMPRESSION: No evidence of deep venous thrombosis of the left lower extremity. Ana Ji DO CV VASCULAR ORDERABLES Final Res ult * CT lower extremity without IV contrast left (12/09/2024 8:36 AM EDT) Anatomical Region Laterality Modality Lower Extremity, Hip, Femur, Leg, Knee, Ankle, Foot Computed Tomography (CT) 12/09/2024 8:51 AM EDT Impressions 12/09/2024 10:22 AM EDT Subcutaneous edema which may be seen with cellulitis. No abscess, foreign body or gas in the soft tissues. This study was performed using dose reduction techniques to achieve radiation exposure as low as reasonably achievable (ALARA) Images reviewed, interpreted, and dictated by Zohaib Martinez MD Narrative 12/09/2024 10:[address] LEFT LOWER EXTREMITY, ATTENTION DISTAL CALF AND ANKLE HISTORY: Pain, erythema. Swelling. TECHNIQUE: Thin section axial CT with sagittal and coronal reconstructions. FINDINGS: Edema is noted in the subcutaneous tissues of the distal calf extending to the ankle and hindfoot. No loculated fluid collection is identified. Localized heel pad edema is noted. No gas is seen in the soft tissues or a foreign body. No bone destruction is present. There is no fracture. Procedure Note Zohaib Martinez MD - 12/09/2024 CT LEFT LOWER EXTREMITY, ATTENTION DISTAL CALF AND ANKLE HISTORY: Pain, erythema. Swelling. TECHNIQUE: Thin section axial CT with sagittal and coronal reconstructions. FINDINGS: Edema is noted in the subcutaneous tissues of the distal calf extending to the ankle and hindfoot. No loculated fluid collection is identified. Localized heel pad edema is noted. No gas is seen in the soft tissues or a foreign body. No bone destruction is present. There is no fracture. IMPRESSION: Subcutaneous edema which may be seen with cellulitis. No abscess, foreign body or gas in the soft tissues. This study was performed using dose reduction techniques to achieve radiation exposure as low as reasonably achievable (ALARA) Images reviewed, interpreted, and dictated by Zohaib Martinez MD us Ana Ji DO IMG CT ORDERABLES Final Result * (ABNORMAL) Comprehensive metabolic panel (12/09/2024 7:53 AM EDT) Sodium 135(L) 136 - 146 meq/L 12/09/2024 8:21 AM EDT [facility] Potassium 3.9 3.5 - 5.1 meq/L 12/09/2024 8:21 AM EDT [facility] Chloride 104 102 - 112 meq/L 12/09/2024 8:21 AM EDT [facility] CO2 26 21 - 32 meq/L 12/09/2024 8:21 AM EDT [facility] Calcium 8.7 8.5 - 10.1 mg/dL 12/09/2024 8:21 AM EDT [facility] Glucose 94 74 - 106 mg/dL 12/09/2024 8:21 AM EDT [facility] BUN 8 7 - 22 mg/dL 12/09/2024 8:21 AM EDT [facility] Creatinine 0.82 0.55 - 1.02 mg/dL 12/09/2024 8:21 AM EDT [facility] BUN/Creatinine 10 8 - 20 12/09/2024 8:21 AM T [facility] Albumin 3.3(L) 3.4 - 5.0 g/dL 12/09/2024 8:21 AM EDT [facility] Alkaline Phosphatase 88 27 - 136 U/L 12/09/2024 8:21 AM EDT [facility] ALT 20 12 - 78 U/L 12/09/2024 8:21 AM EDT [facility] AST 19 5 - 37 U/L 12/09/2024 8:21 AM EDT [facility] Total Bilirubin 0.5 0.2 - 1.3 mg/dL 12/09/2024 8:21 AM T [facility] Protein, Total 6.7 6.4 - 8.2 gm/dL 12/09/2024 8:21 AM EDT [facility] Anion Gap 9 9 - 20 12/09/2024 8:21 AM EDT [facility] A/G Ratio 1.0(L) 1.1 - 2.5 12/09/2024 8:21 AM EDT [facility] Globulin 3.4 1.5 - 4.5 g/dL 12/09/2024 8:21 AM EDT [facility] Osmolality Calc 268.2 mOsm/kg 8:21 AM EDT [facility] eGFR (mL/min/1.73m2) >60 >=60 mL/min/1.7 3m2 12/09/2024 8:21 AM EDT [facility] Comment:ESTIMATED GFR IS NOT ACCURATE CREATININE CLEARANCE IN PREDICTING GLOMERULAR FILTRATION RATE. ESTIMATED GFR IS NOT APPLICABLE FOR DIALYSIS PATIENTS. Blood Venipuncture / Unknown 12/09/2024 7:53 AM EDT 12/09/2024 8:01 AM EDT us Ana Ji DO LAB BLOOD ORDERABLES Final Resul t [facility] [address] [phone] * (ABNORMAL) CBC with Auto Diff (12/09/2024 7:53 AM EDT) WBC 12.5(H) 3.9 - 10.0 K/ L 12/09/2024 8:05 AM EDT [facility] RBC 4.30 3.93 - 6.08 M/ L 12/09/2024 8:05 AM EDT [facility] Hemoglobin 12.1 11.2 - 15.7 GM/DL 12/09/2024 8:05 AM EDT [facility] Hematocrit 37.3 34.1 - 44.9 % 12/09/2024 8:05 AM EDT [facility] MCV 87 79 - 95 fL 12/09/2024 8:05 AM EDT [facility] MCH 28.1 25.6 - 32.2 pg 12/09/2024 8:05 AM EDT [facility] MCHC 32.4 32.2 - 36.5 GM/DL 12/09/2024 8:05 AM [facility] RDW 15.3(H) 11.6 - 14.4 % 12/09/2024 8:05 AM EDT [facility] Platelets 285 163 - 369 K/CU MM 12/09/2024 8:05 AM [facility] MPV 9.9 9.4 - 12.4 fL 12/09/2024 8:05 AM [facility] % Neutros 70 34 - 71 % 12/09/2024 8:05 AM T [facility] % Lymphs 18(L) 19 - 53 % 12/09/2024 8:05 AM [facility] % Monos 10 4 - 13 % 12/09/2024 8:05 AM [facility] % Eos 1 1 - 7 % 12/09/2024 8:05 AM [facility] % Baso 1 0 - 1 % 12/09/2024 8:05 AM [facility] # Neutros 8.74(H) 1.56 - 6.13 K/ L 12/09/2024 8:05 AM T [facility] # Lymphs 2.27 1.18 - 3.74 K/ L 12/09/2024 8:05 AM T [facility] # Monos 1.29(H) 0.24 - 0.82 K/ L 12/09/2024 8:05 AM T [facility] # Eos 0.08 0.04 - 0.54 K/ L 12/09/2024 8:05 AM T [facility] # Baso 0.07 0.01 - 0.08 K/ L 12/09/2024 8:05 AM [facility] Immature Granulocytes-Re lative 0.40 0.00 - 0.60 % 12/09/2024 8:05 AM [facility] # IG 0.05 0.00 - 0.05 K/uL 12/09/2024 8:05 AM [facility] Blood Venipuncture / Unknown 12/09/2024 7:53 AM EDT 12/09/2024 8:01 AM EDT Narrative [facility] - 12/09/2024 8:05 AM EDT When CBC w/ Auto Diff is ordered the lab will add a Manual Differential as a quality check at no additional charge if: Lymphocytes greater than seventy five percent with normal or increased WBC Monocytes greater than Fifteen percent Basophil greater than four percent Bands >10% or several immature myeloids are seen on scan Blast? Flag noted Atypical Lymph flag noted Ana Ji DO LAB BLOOD ORDERABLES Final Resul t [facility] [address] [phone] * XR ankle 3 views left (12/09/2024 7:42 AM EDT) Anatomical Region Laterality Modality Leg, Ankle, Foot X-Ray 12/09/2024 9:24 AM EDT Impressions 12/09/2024 9:28 AM EDT Soft tissue edema without acute fracture. Images reviewed, interpreted, and dictated by Dr. Zohaib Martinez. Transcribed by Delfina Mann PA-C. Narrative 12/09/2024 9:28 AM EDT LEFT ANKLE SERIES HISTORY: Acute left ankle pain. COMPARISON: None. FINDINGS: A three view exam demonstrates no acute fracture or dislocation. The joint spaces appear unremarkable. There is edema along the plantar calcaneus, nonspecific. No evidence of gas in the soft tissues. No radiopaque foreign body identified. Procedure Note Zohaib Martinez MD - 12/09/2024 LEFT ANKLE SERIES HISTORY: Acute left ankle pain. COMPARISON: None. FINDINGS: A three view exam demonstrates no acute fracture or dislocation. The joint spaces appear unremarkable. There is edema along the plantar calcaneus, nonspecific. No evidence of gas in the soft tissues. No radiopaque foreign body identified. IMPRESSION: Soft tissue edema without acute fracture. Images reviewed, interpreted, and dictated by Dr. Zohaib Martinez. Transcribed by Delfina Mann PA-C. us Ana Ji DO IMG DIAGNOSTIC IMAGING ORDERABLE S Final Result documented in this encounter Visit Diagnoses Diagnosis Left leg pain- Primary Pain in soft tissues of limb Cellulitis of left lower extremity documented in this encounter Administered Medications Inactive Administered Medications - up to 3 most recent administrations Medication Order MAR Action Action Date Dose Rate Site clindamycin (CLEOCIN) IVPB 600 mg in 0.9 % sodium chloride 50 mL (premix) 600 mg Once, intravenous, Administer over 30 Minutes, On 12/09/24 at 1000, For 1 dose, Please choose an indication: Skin/Soft Tissue Infection IVPB Started 12/09/2024 10:20 AM EDT 600 mg ketorolac (TORADOL) injection 30 mg 30 mg Once, intravenous, On 12/09/24 at 0720, For 1 dose Given 12/09/2024 7:50 AM EDT 30 mg morphine injection 4 mg 4 mg Once, intravenous, On 12/09/24 at 0800, For 1 dose Given 12/09/2024 7:57 AM EDT 4 mg morphine injection 4 mg 4 mg Once, intravenous, On 12/09/24 at 0920, For 1 dose Given 12/09/2024 9:37 AM EDT 4 mg documented in this encounter Active and Recently Administered Medications Times are shown in EDT. Scheduled Medication Order 12/07/2024 12/08/2024 12/09/2024 clindamycin (CLEOCIN) IVPB 600 mg in 0.9 % sodium chloride 50 mL (premix) (COMPLETED) 600 mg Once, intravenous, Administer over 30 Minutes, On 12/09/24 at 1000, For 1 dose, Please choose an indication: Skin/Soft Tissue Infection 1020 (IVPB Started - Provider: Arthur Hubbard RN)1054 (Stopped - Provider: Arthur Hubbard RN) ketorolac (TORADOL) injection 30 mg (COMPLETED) 30 mg Once, intravenous, On 12/09/24 at 0720, For 1 dose 0750 (Given - Provid er: Arthur Hubbard RN) morphine injection 4 mg (COMPLETED) 4 mg Once, intravenous, On 12/09/24 at 0800, For 1 dose 0757 (Given - Provid er: Arthur Hubbard, JONEL) morphine injection 4 mg (COMPLETED) 4 mg Once, intravenous, On 12/09/24 at 0920, For 1 dose 0937 (Given - Provid er: Arthur Hubbard, RN) documented in this encounter Care Teams Special Effects Person Relationship Specialty Start Date End Date Gisel Roman, BULLET SWAGING MACHINE OPERATOR [address] [place] [address] PCP - General Behavioral Health 06/09/24 12/18/24 documented as of this encounter
--- NOTE | 2024-12-25 08:00 | CA_ITS ---
APPROVED REPORT EXAM: Comprehensive 2D, Doppler, and color-flow Echocardiogram Housing Management Representative: YUN Kelly, RVS Ht: 5 ft 3 in Wt: 236lbs BSA: 2.07 BP: 132/88 mmHg Indications: SOB, Elevated BNP, Smoker Echo Enhancing Agent Indication: Endocardial border delineation Agent(s) / Amount(s) Used: Definity 2 cc 2D Dimensions Left Atrium 2.65 cm F: 2.7 - 3.8 LA Volume 76.30 mL LA Volume Index 36.68 mL/m2 (M/F) 16-34 M-Mode Dimensions RVDd 1.64 cm (0.9-2.6) LA Diam 2.52 cm (1.9-4.0) LVDd 5.91 cm (3.5-5.7) LVDs 4.19 cm (3.5-5.7) IVSd 1.07 cm (0.6-1.1) PWd 1.03 cm (0.6-1.1) EF (Teich) 55.10% EPSs 0.53 cm FS 29.10% EDV (Teich) 173.90 mL TAPSE 2.13 (<1.7) ESV (Teich) 78.10 mL LV Diastology E Decel Time 137 (160-240 msec) E/A Ratio 1.31 MED A' 17.40 cm/s LAT A' 7.40 cm/s Aortic Valve ROSI Index 0.77 cm2/m2 AoV Peak Edenilson. 161.0 (50-130 cm/s) AO Peak GR. 10.30 mmHg AO Mean GR. 5.10 (<5 mmHg) AO VTI 35.9 (18-25 cm) ROSI (VTI) 1.63 (2.5-4.5 cm2) Mitral Valve MV A Velocity 75.0 (40-130 cm/s) E/A Ratio 1.31 Left Ventricle The left ventricle is normal size. The left ventricular systolic function is low normal. There is increased LV wall thickness. There is normal LV segmental wall motion. Diastolic function is indeterminate. No left ventricle thrombus noted on this study. LVEF is 50%. Right Ventricle The right ventricle is normal size. The right ventricular systolic function is normal. Atria The left atrium size is normal. The right atrium size is normal. There is no Doppler evidence of interatrial shunt. Aortic Valve The aortic valve is mildly thickened. There is no aortic valvular stenosis. Trace aortic regurgitation. Mitral Valve The mitral valve is normal in structure. No evidence of mitral valve stenosis. Trace mitral regurgitation. Tricuspid Valve Tricuspid valve is grossly normal in structure and function. Trace tricuspid regurgitation. There is insufficient TR jet to estimate RVSP. Pulmonic Valve The pulmonary valve is normal in structure. Trace pulmonic regurgitation. Great Vessels The aortic root is normal in size. IVC is normal in size and collapses >50% with inspiration. Pericardium There is no pericardial effusion. Other Information Study Quality: Technically Difficult Conclusion Technically difficult study due to poor acoustic windows and inability to visualize the endocardial borders. Ultrasound enhancing agent was administered to better delineate the LV endocardial borders. Low normal LV systolic function (LVEF 50%). No significant valvular stenosis or regurgitation. Electronically signed by : Shavonne Soria MD 12/31/2024 12:59:08
--- OUTSIDE RECORDS SUMMARY | 2024-12-25 08:04 | XMS_ITS | Clinical Summary ---
Author Organization [employer] ([place], [place], [place], [place]) Address [address] [place] [address] Care Team Providers Care Manager Pest Name Role Phone Ryann Jackson APRN Primary Care Provider Allergies Active Allergy Reactions Criticality Noted Date [...] 7 days. 21 capsule 5 12/15/19 25 clindamycin (CLEOCIN) 300 MG capsule Take 2 capsules (600 mg total) by mouth 3 (three) times daily for 10 days. 60 capsule 5 12/20/19 25 HYDROcodone-gomez taminophen (NORCO) 5-325 mg per tablet Take 1 tablet by mouth every 6 (six) hours as needed for pain for up to 3 days. Max Daily Amount: 4 tablets 10 tablet 5 12/13/19 Active Problems Problem Noted Date Diagnosed Date Abnormal uterine bleeding (AUB) 06/11/2024 Assessment & Plan (06/11/2024 11:14 AM EST): Fibroid is stable and she is usually without symptoms. Plan for yearly US for fibroid. She responded well to Provera. Will check TSH and FSH today and follow up on bleeding at annual exam. Encounters Date Type Department Care Team Description 12/19/2024 Outside Orders [facility] Neurology - [facility] [address] [place] [id number] Ryann Jackson APRN Tremor (Primary Dx); Polyneuropathy 12/09/2024 7:03 AM EDT - 12/09/2024 10:57 AM EDT Emergency [facility] Emergency Department [address] [place] [address] Ana Ji DO Left leg pain (Primary Dx); Cellulitis of left lower extremity Discharge Disposition: Home or Self Care 12/09/2024 Travel 12/07/2024 Orders Only [facility] CLIENT DEVELOPMENT DIRECTOR - [place] [address] [facility] [address] [place] [address] Alissa Osuna RN Cough (Primary [...] (3 - season) 2024, 06/18/2020 Influenza Vaccine (#1) 2025 Procedures Procedure Name Priority Date/Time Associated [...] by Zohaib Martinez MD Ana Ji DO [facility] CT ORDERABLES Final Result * (ABNORMAL) CBC with Auto Diff (12/09/2024 7:53 AM EDT) WBC 12.5(H) 3.9 - 10.0 K/ L 12/09/2024 8:05 AM EDT [facility] RBC 4.30 3.93 - 6.08 M/ L 12/09/2024 8:05 AM EDT [facility] Hemoglobin 12.1 11.2 - 15.7 GM/DL 12/09/2024 8:05 AM EDT [facility] Hematocrit 37.3 34.1 - 44.9 % 12/09/2024 8:05 AM EDT [facility] MCV 87 79 - 95 fL 12/09/2024 8:05 AM EDT [facility] MCH 28.1 25.6 - 32.2 pg 12/09/2024 8:05 AM EDT [facility] MCHC 32.4 32.2 - 36.5 GM/DL 12/09/2024 8:05 AM EDT [facility] RDW 15.3(H) 11.6 - 14.4 % 12/09/2024 8:05 AM EDT [facility] Platelets 285 163 - 369 K/CU MM 12/09/2024 8:05 AM EDT [facility] MPV 9.9 9.4 - 12.4 fL 12/09/2024 8:05 AM EDT [facility] % Neutros 70 34 - 71 % 12/09/2024 8:05 AM EDT [facility] % Lymphs 18(L) 19 - 53 % 12/09/2024 8:05 AM EDT [facility] % Monos 10 4 - 13 % 12/09/2024 8:05 AM EDT [facility] % Eos 1 1 - 7 % 12/09/2024 8:05 AM EDT [facility] % Baso 1 0 - 1 % 12/09/2024 8:05 AM EDT [facility] # Neutros 8.74(H) 1.56 - 6.13 K/ L 12/09/2024 8:05 AM EDT [facility] # Lymphs 2.27 1.18 - 3.74 K/ L 12/09/2024 8:05 AM EDT [facility] # Monos 1.29(H) 0.24 - 0.82 K/ L 12/09/2024 8:05 AM EDT [facility] # Eos 0.08 0.04 - 0.54 K/ L 12/09/2024 8:05 AM EDT [facility] # Baso 0.07 0.01 - 0.08 K/ L 12/09/2024 8:05 AM EDT [facility] Immature Granulocytes-Re lative 0.40 0.00 - 0.60 % 12/09/2024 8:05 AM EDT [facility] # IG 0.05 0.00 - 0.05 K/uL 12/09/2024 8:05 AM EDT [facility] Blood Venipuncture / Unknown 12/09/2024 7:53 AM EDT 12/09/2024 8:01 AM EDT Narrative [facility] - 12/09/2024 8:05 AM EDT [...] DO LAB BLOOD ORDERABLES Final Resul t [facility] [address] [phone] * (ABNORMAL) Comprehensive metabolic panel (12/09/2024 7:53 AM EDT) Sodium 135(L) 136 - 146 meq/L 12/09/2024 8:21 AM EDT [facility] Potassium 3.9 3.5 - 5.1 meq/L 12/09/2024 8:21 AM EDT [facility] Chloride 104 102 - 112 meq/L 12/09/2024 8:21 AM EDT [facility] CO2 26 21 - 32 meq/L 12/09/2024 8:21 AM EDT [facility] Calcium 8.7 8.5 - 10.1 mg/dL 12/09/2024 8:21 AM EDT [facility] Glucose 94 74 - 106 mg/dL 12/09/2024 8:21 AM EDT [facility] BUN 8 7 - 22 mg/dL 12/09/2024 8:21 AM EDT [facility] Creatinine 0.82 0.55 - 1.02 mg/dL 12/09/2024 8:21 AM EDT [facility] BUN/Creatinine 10 8 - 20 12/09/2024 8:21 AM EDT [facility] Albumin 3.3(L) 3.4 - 5.0 g/dL 12/09/2024 8:21 AM EDT [facility] Alkaline Phosphatase 88 27 - 136 U/L 12/09/2024 8:21 AM EDT [facility] ALT 20 12 - 78 U/L 12/09/2024 8:21 AM EDT [facility] AST 19 5 - 37 U/L 12/09/2024 8:21 AM EDT [facility] Total Bilirubin 0.5 0.2 - 1.3 mg/dL 12/09/2024 8:21 AM EDT [facility] Protein, Total 6.7 6.4 - 8.2 gm/dL 12/09/2024 8:21 AM EDT [facility] Anion Gap 9 9 - 20 12/09/2024 8:21 AM EDT [facility] A/G Ratio 1.0(L) 1.1 - 2.5 12/09/2024 8:21 AM EDT [facility] Globulin 3.4 1.5 - 4.5 g/dL 12/09/2024 8:21 AM EDT [facility] Osmolality Calc 268.2 mOsm/kg 8:21 AM T [facility] eGFR (mL/min/1.73m2) >60 >=60 mL/min/1.7 3m2 12/09/2024 8:21 AM EDT [facility] Comment:ESTIMATED GFR IS NOT ACCURATE CREATININE CLEARANCE IN PREDICTING GLOMERULAR FILTRATION RATE. ESTIMATED GFR IS NOT APPLICABLE FOR DIALYSIS PATIENTS. Blood Venipuncture / Unknown 12/09/2024 7:53 AM EDT 12/09/2024 8:01 AM EDT us Ana Ji DO LAB BLOOD ORDERABLES Final Resul t [facility] [address] [place] [address], [facility] [phone] * XR ankle 3 views left (12/09/2024 [...] Martinez. Transcribed by Delfina Mann PA-C. Ana Stronglo HUSSEIN [facility] DIAGNOSTIC IMAGING ORDERABLE S Final Result * [...] the next mammogram. At our facility, a pokagon marker is positioned over a visible skin [...] the next mammogram. At our facility, a pokagon marker is positioned over a visible skin lesion and a linear marker is used to indicate a scar. A triangular marker is placed on a self reported palpable finding. us Heike Perdomo MD IMG MAMMOGRAPHY ORDERABLES Fin al Result * Pap Smear, Thin Prep (05/01/2020 12:00 AM EST) Vaginal/Cervical/ Endocervical OTHER / Unknown us Sherry Mendoza DO PATHOLOGY/CYTOLOGY ORDERABLES Fi nal Result [place] [address] from Last 3 Months or Most Recently Relevant to Health Maintenance Insurance [facility] EMP Care Teams Manager Pest Relationship Specialty Start Date End Date Ryann Jackson, MAYI [address] [address] PCP - General Nurse Practitioner 12/19/24
--- OUTSIDE RECORDS SUMMARY | 2024-12-25 08:04 | XMS_ITS | Encounter Summary ---
Author Organization [employer] ([place], [place], [place], [place]) Address [address] [place] [address] Care Team Providers Care Steam Fitter Supervisor Maintenance Name Role Phone Gisel Roman APRN Primary Care Provider [phone] Encounter Details Date Type Department Care Team ([facility] Contact Info) Description 12/07/2024 Orders Only [facility] COOK SPECIALTY FOREIGN FOOD - [place] [address] [facility] [address] [place] [address] Alsisa Osuna RN Cough (Primary Dx) Social History [...] Primary documented in this encounter Care Teams Steam Fitter Supervisor Maintenance Relationship Specialty Start Date End Date Gisel Roman APRN [address] [place] [address] PCP - General Behavioral Health 06/09/24 12/18/24 documented as of this encounter
--- OUTSIDE RECORDS SUMMARY | 2024-12-25 08:04 | XMS_ITS | Encounter Summary ---
Author Organization [employer] ([place], [place], [place], [place]) Address [address] [place] [address] Care Team Providers Care Squilgeer Name Role Phone Gisel Roman APRN Primary Care Provider [phone] Encounter Details Date Type Department Care Team [...] on filedocumented in this encounter Care Teams Squilgeer Relationship Specialty Start Date End Date Gisel Roman APRN [address] [place] [address] PCP - General Behavioral Health 06/09/24 12/18/24 documented as of this encounter
--- OUTSIDE RECORDS SUMMARY | 2024-12-25 08:04 | XMS_ITS | Referral Summary ---
Author Organization [email or web address] ([place], [place], [place], [place]) Address [address] [place] [address] Care Team Providers Care Composition Worker Name Role Phone Ryann Jackson APRN Primary Care Provider [phone] Encounters Date Type Department Care Team Description 12/19/2024 Outside Orders [facility] Neurology - [address] [place] [address] Ryann Jackson APRN Tremor (Primary Dx); Polyneuropathy 12/09/2024 Travel 12/09/2024 7:03 AM EDT - 12/09/2024 10:57 AM EDT Emergency [facility] Emergency Department [address] [place] [address] Ana Ji DO Left leg pain (Primary Dx); Cellulitis of left lower extremity Discharge Disposition: Home or Self Care 12/07/2024 Orders Only [facility] J2EE ANDROID DEVELOPER - [place] [address] [facility] [address] [place] [address] Alissa Osuna RN Cough (Primary Dx) from Last 3 Months Allergies Active Allergy Reactions Criticality Noted Date Comments Penicillin 06/09/2024 Medications venlafaxine XR (EFFEXOR-XR) 150 MG 24 hr capsule Take 1 capsule (150 mg total) by mouth daily. Active venlafaxine XR (EFFEXOR-XR) 75 MG 24 [...] 10.0 K/ L 12/09/2024 8:05 AM EDT [facility] RBC 4.30 3.93 - 6.08 M/ L 12/09/2024 8:05 AM EDT [facility] Hemoglobin 12.1 11.2 - 15.7 GM/DL 12/09/2024 8:05 AM EDT [facility] Hematocrit 37.3 34.1 - 44.9 % 12/09/2024 8:05 AM EDT [facility] MCV 87 79 - 95 fL 12/09/2024 8:05 AM EDT [facility] MCH 28.1 25.6 - 32.2 pg 12/09/2024 8:05 AM EDT [facility] MCHC 32.4 32.2 - 36.5 GM/DL 12/09/2024 8:05 AM EDT [facility] RDW 15.3(H) 11.6 - 14.4 % 12/09/2024 8:05 AM EDT [facility] Platelets 285 163 - 369 K/CU MM 12/09/2024 8:05 AM EDT [facility] MPV 9.9 9.4 - 12.4 fL 12/09/2024 8:05 AM EDT [facility] % Neutros 70 34 - 71 % 12/09/2024 8:05 AM EDT [facility] % Lymphs 18(L) 19 - 53 % 12/09/2024 8:05 AM EDT [facility] % Monos 10 4 - 13 % 12/09/2024 8:05 AM EDT [facility] % Eos 1 1 - 7 % 12/09/2024 8:05 AM EDT [facility] % Baso 1 0 - 1 % 12/09/2024 8:05 AM EDT [facility] # Neutros 8.74(H) 1.56 - 6.13 K/ L 12/09/2024 8:05 AM EDT [facility] # Lymphs 2.27 1.18 - 3.74 K/ L 12/09/2024 8:05 AM EDT [facility] # Monos 1.29(H) 0.24 - 0.82 K/ L 12/09/2024 8:05 AM EDT [facility] # Eos 0.08 0.04 - 0.54 K/ L 12/09/2024 8:05 AM EDT [facility] # Baso 0.07 0.01 - 0.08 K/ L 12/09/2024 8:05 AM EDT [facility] Immature Granulocytes-Re lative 0.40 0.00 - 0.60 % 12/09/2024 8:05 AM EDT [facility] # IG 0.05 0.00 - 0.05 K/uL 12/09/2024 8:05 AM EDT [facility] Blood Venipuncture / Unknown 12/09/2024 7:53 AM EDT 12/09/2024 8:01 AM EDT Narrative [facility] - 12/09/2024 8:05 AM EDT [...] DO LAB BLOOD ORDERABLES Final Resul t [facility] [address] [employer] [address] [phone] * (ABNORMAL) Comprehensive metabolic panel (12/09/2024 7:53 AM EDT) Sodium 135(L) 136 - 146 meq/L 12/09/2024 8:21 AM [facility] Potassium 3.9 3.5 - 5.1 meq/L 12/09/2024 8:21 AM [facility] Chloride 104 102 - 112 meq/L 12/09/2024 8:21 AM T [facility] CO2 26 21 - 32 meq/L 12/09/2024 8:21 AM T [facility] Calcium 8.7 8.5 - 10.1 mg/dL 12/09/2024 8:21 AM [facility] Glucose 94 74 - 106 mg/dL 12/09/2024 8:21 AM [facility] BUN 8 7 - 22 mg/dL 12/09/2024 8:21 AM [facility] Creatinine 0.82 0.55 - 1.02 mg/dL 12/09/2024 8:21 AM [facility] BUN/Creatinine 10 8 - 20 12/09/2024 8:21 AM [facility] Albumin 3.3(L) 3.4 - 5.0 g/dL 12/09/2024 8:21 AM [facility] Alkaline Phosphatase 88 27 - 136 U/L 12/09/2024 8:21 AM [facility] ALT 20 12 - 78 U/L 12/09/2024 8:21 AM [facility] AST 19 5 - 37 U/L 12/09/2024 8:21 AM [facility] Total Bilirubin 0.5 0.2 - 1.3 mg/dL 12/09/2024 8:21 AM [facility] Protein, Total 6.7 6.4 - 8.2 gm/dL 12/09/2024 8:21 AM [facility] Anion Gap 9 9 - 20 12/09/2024 8:21 AM [facility] A/G Ratio 1.0(L) 1.1 - 2.5 12/09/2024 8:21 AM [facility] Globulin 3.4 1.5 - 4.5 g/dL 12/09/2024 8:21 AM EDT [facility] Osmolality Calc 268.2 mOsm/kg 8:21 AM EDT [facility] eGFR (mL/min/1.73m2) >60 >=60 mL/min/1.7 3m2 12/09/2024 8:21 AM EDT [facility] Comment:ESTIMATED GFR IS NOT ACCURATE CREATININE CLEARANCE IN PREDICTING GLOMERULAR FILTRATION RATE. ESTIMATED GFR IS NOT APPLICABLE FOR DIALYSIS PATIENTS. Blood Venipuncture / Unknown 12/09/2024 7:53 AM EDT 12/09/2024 8:01 AM EDT us Ana Rubinjaclyn HUSSEIN LAB BLOOD ORDERABLES Final Resul t [facility] [address] [phone] * XR ankle 3 views left (12/09/2024 [...] the next mammogram. At our facility, a kl[place] ka[place] marker is positioned over a visible skin [...] the next mammogram. At our facility, a [place] marker is positioned over a visible skin lesion and a linear marker is used to indicate a scar. A triangular marker is placed on a self reported palpable finding. us Heike Perdomo MD IMG MAMMOGRAPHY ORDERABLES Fin al Result * Pap Smear, Thin Prep (05/01/2020 12:00 AM EST) Vaginal/Cervical/ Endocervical OTHER / Unknown Sherry Mendoza DO PATHOLOGY/CYTOLOGY ORDERABLES Fi nal Result [facility] [address] [place] [id number] from Last 3 Months or Most Recently Relevant to Health Maintenance Insurance [facility] EMP Care Teams Composition Worker Relationship Specialty Start Date End Date Ryann Jackson APRN [address] [address] PCP - General Nurse Practitioner 12/19/24
--- OUTSIDE RECORDS SUMMARY | 2024-12-25 08:04 | XMS_ITS | Encounter Summary ---
Author Organization [employer] ([place], [place], [place], [place]) Address [address] [place] [address] Care Team Providers Care Contact Representative Name Role Phone Ryann Jackson APRN Primary Care Provider Reason for Referral * Consultation (Routine) - Authorized Specialty Diagnoses / Procedures Referred By Contac t Referred To Contact Neurology Diagnoses Tremor Polyneuropathy New PT - Tremor, Alteration in Speech, Polyneuropathy Procedures Pending Processing Ryann Jackson APRN [address] [address] Phone: tel: fax: [facility] - [facility] [address] [place] [address] [address] [place] [address] Phone: tel: fax: Referral ID Status Reason Start Date Expiration Date Visits Requested Visits Authorized [id number] Authorized Specialty Services Required 12/19/2024 12/19/2025 1 1 Encounter Details Date Type Department Care Team (Late st Contact Info) Description 12/19/2024 Outside Orders [facility] [address] [place] [address] [address] [place] [address] Ryann Jackson APRN [address] [address] Tremor (Primary Dx); Polyneuropathy Social History Tobacco Use Types Packs/Day Years [...] as of this encounter Plan of Treatment Scheduled Referrals Name Type Priority Associated Diagnoses Order Schedule Ambulatory referral to Neurology Outpatient Referral Routine Tremor Polyneuropathy Ordered: 12/19/2024 documented as of this encounter Visit Diagnoses Diagnosis Tremor- Primary Abnormal involuntary movements Polyneuropathy Unspecified hereditary and idiopathic peripheral neuropathy documented in this encounter Care Teams Contact Representative Relationship Specialty Start Date End Date Ryann Jackson APRN [address] [address] PCP - General Nurse Practitioner 12/19/24 documented as of this encounter
[2024-12-25] MEDS: DEFINITY US ECHO CONTRAST 2ML INJ 2 MG IV (09:01)
== END 2024-12-25 23:59 | disposition home or self-care (01) ==
LOC: RT 07:59
PROVIDERS: PCP Nurse Practitioner Family; Visit Provider Nurse Practitioner Family
DX: R79.89 Other specified abnormal findings of blood chemistry (principal); R06.02 Shortness of breath; F17.200 Nicotine dependence, unspecified, uncomplicated
CPT/HCPCS: 93306; Q9957

== ENCOUNTER 2025-04-01 16:40 | Outpatient (CLI) | payer BC, SELFPAY ==
--- OUTSIDE RECORDS SUMMARY | 2025-04-01 16:42 | XMS_ITS | Clinical Summary ---
Author Organization [email or web address] ([place], [place], [place], [place]) Address [address] [place] [address] Care Team Providers Care Lock Master Name Role Phone Manuel Ryann SEE Primary Care Provider Allergies Active Allergy Reactions [...] mouth 2 (two) times daily. 4 Active Active Problems Problem Noted Date Diagnosed Date Abnormal uterine bleeding (AUB) 06/11/2024 Assessment & Plan (06/11/2024 11:14 AM EST): Fibroid is stable and she is usually without symptoms. Plan for yearly US for fibroid. She responded well to Provera. Will check TSH and FSH today and follow up on bleeding at annual exam. Family History Medical History Relation Name Comments [...] 05/01/2023 05/01/2020 COVID-19 VACCINE (3 - season) 2025, 06/18/2020 Influenza Vaccine (#1) 2025 Procedures Procedure Name Priority Date/Time Associated Diagnosis Comments MM DIGITAL MAMMO SCREEN WITH ARIS BILATERAL Routine 07/23/2020 8:52 AM EST PAP SMEAR, THIN PREP (MCT BKR) AP Routine 05/01/2020 12:00 AM EST from Last 3 Months or Most Recently Relevant to Health Maintenance Results * MM digital mammo screen with aris [...] the next mammogram. At our facility, a [place] marker is positioned over a visible skin [...] the next mammogram. At our facility, a [place] marker is positioned over a visible skin lesion and a linear marker is used to indicate a scar. A triangular marker is placed on a self reported palpable finding. us Heike Perdomo MD IMG MAMMOGRAPHY ORDERABLES Fin al Result * Pap Smear, Thin Prep (05/01/2020 12:00 AM EST) Vaginal/Cervical/ Endocervical OTHER / Unknown Sherry Mendoza DO PATHOLOGY/CYTOLOGY ORDERABLES Fi nal Result [facility] [address] [place], [place] [id number] from Last 3 Months or Most Recently Relevant to Health Maintenance Insurance [facility] EMP Care Teams Lock Master Relationship Specialty Start Date End Date Ryann Jackson APRN [address] [address] PCP - General Nurse Practitioner 12/19/24
--- OUTSIDE RECORDS SUMMARY | 2025-04-01 16:42 | XMS_ITS | Encounter Summary ---
Author Organization [employer] ([place], [place], [place], [place]) Address [address] [place] [address] Care Team Providers Care Tank Farm Gauger Name Role Phone Ryann Jackson APRN Primary Care Provider Reason for Referral * Consultation (Routine) - Authorized Specialty Diagnoses / Procedures Referred By Contcandi t Referred To Contact Neurology Diagnoses Tremor Polyneuropathy Alteration in speech New PT & EMG/NCV - Tremor, Alteration in Speech, Polyneuropathy EMG/NCV & Consult - Tremor, Alteration in Speech, Polyneuropathy Procedures EMG W/NCS Scheduled Ryann Jackson APRN [address] [address] Phone: tel: fax: [facility] - [facility] [address] [facility] [address] [place] [address] Phone: tel: fax: Referral ID Status Reason Start Date Expiration Date Visits Requested Visits Authorized [id number] Authorized Specialty Services Required 12/19/2024 12/19/2025 2 2 Encounter Details Date Type Department Care Team (Late st Contact Info) Description 12/19/2024 Outside Orders [facility] Neurology - [facility] [address] [facility] [address] [place] [address] Ryann Jackson APRN [address] [address] Tremor (Primary Dx); Polyneuropathy Social History Tobacco [...] neuropathy documented in this encounter Care Teams Tank Farm Gauger Relationship Specialty Start Date End Date Ryann Jackson APRN [address] [address] PCP - General Nurse Practitioner 12/19/24 documented as of this encounter
--- OUTSIDE RECORDS SUMMARY | 2025-04-01 16:42 | XMS_ITS | Referral Summary ---
Author Organization [facility] ([place], [place], [place], [place]) Address [address] [place] [address] Care Team Providers Care Supervisor [employer] Name Role Phone Manuel Ryann SEE Primary [...] the next mammogram. At our facility, a [place] marker is positioned over a visible skin [...] the next mammogram. At our facility, a [place] marker is positioned over a visible skin lesion and a linear marker is used to indicate a scar. A triangular marker is placed on a self reported palpable finding. Heike Perdomo MD [facility] [place] [facility] ORDERABLES Fin al Result * Pap Smear, Thin Prep (05/01/2020 12:00 AM EST) Vaginal/Cervical/ Endocervical OTHER / Unknown Sherry Mendoza DO PATHOLOGY/CYTOLOGY ORDERABLES Fi nal Result [facility] [place] [address] from Last 3 Months or Most Recently Relevant to Health Maintenance Insurance [facility] Care Teams Supervisor [employer] Relationship Specialty Start Date End Date Ryann Jackson, MAYI [address] [address] PCP - General Nurse Practitioner 12/19/24
[2025-04-01 17:20] LABS: Hematocrit 44.2 % (37.0-47.0); Hemoglobin 14.7 g/dL (12.2-16.2); Immature Granulocytes % 0.4 %; Mean Corpuscular HGB Conc 33.3 g/dL (31.8-35.4); Mean Corpuscular Hemoglobin 29.6 pg (27.0-31.2); Mean Corpuscular Volume 88.9 fl (81-99); Nucleated Red Blood Cells % 0 %; Platelet Count 311 K/mm3 (142-424); Red Blood Count 4.97 M/mm3 (4.20-5.40); Red Cell Distribution Width-SD 46.5 fL; White Blood Count 7.6 K/mm3 (4.8-10.8)
[2025-04-01 19:50] LABS: Vitamin B12 726 pg/mL (239-931)
[2025-04-01 20:18] LABS: Ferritin 10.8 ng/ml (11.1-264)
[2025-04-03 14:26] LABS: Antinuclear Antibodies (ANA) Negative (Negative)
== END 2025-04-01 23:59 | disposition home or self-care (01) ==
LOC: LAB 16:40
PROVIDERS: PCP Nurse Practitioner Family; Visit Provider Nurse Practitioner Family
DX: R68.2 Dry mouth, unspecified (principal); R22.0 Localized swelling, mass and lump, head
CPT/HCPCS: 36415; 82180; 82607; 82728; 84207; 84425; 85025; 86235